=== PATIENT | female | born 1990 | race Caucasian/White ===

== ENCOUNTER 2016-11-12 20:03 | Emergency (ER) | payer MEDICAID, OTHER ==
[~2016-11-12 20:03] MED LIST: ACET50TA PO; ANUS2.5C2 TOP; COLA50CA3 PO; FLINSTONE VITAMINS PO; IBUP600T26 PO; MOM30SS PO
[2016-11-12] MEDS ORDERED: NAPROXEN 250 MG TAB As Ordered ONE (21:24)
--- NOTE | 2016-11-12 21:30 | EDDOCDS ---
Physician Documentation [facility] Name: Nadia Ibarra Age: 26 yrs Sex: Female : 1990 Arrival Date: 11/12/2016 Time: 20:03 Bed PR Private MD: Baldemar Hargrove Disposition: 11/12/16 21:21 Discharged to Home/Self Care. Impression: Sprain of medial collateral ligament of right knee. - Condition is Stable. - Discharge Instructions: Elastic Bandage and RICE, Knee Sprain. - Prescriptions for Naprosyn 500 mg Oral Tablet - take 1 tablet by ORAL route 2 times per day take with food; 30 tablet. - Medication Reconciliation, Work Release Form - 3 day, Local Pharmacy Hours form. - Follow up: Orthopaedics, [facility]; When: Call to arrange an appointment; Reason: Recheck today's complaints. - Problem is new. - Symptoms are unchanged. Historical: - Allergies: Phenergan ("crazy"); - Home Meds: 1. Wellbutrin XL 300 mg oral Tb24 1 tab once daily (Last dose: 11/12/2016 08:00) 2. Topamax 50 mg Oral tab 1 tab 2 times per day (Last dose: 11/12/2016 08:00) 3. Revia 50 mg oral tab 1 tab once daily (Last dose: 11/12/2016 08:00) 4. hydroxyzine HCl 50 mg Oral tab three times a day (Last dose: 11/11/2016) 5. gabapentin 300 mg Oral cap 1 cap 3 times per day (Last dose: 11/12/2016 15:00) 6. BuSpar Oral 10 mg three times a day (Last dose: 11/12/2016 15:00) 7. naproxen 250 mg Oral tab 1 tab as needed (Last dose: 11/12/2016 15:00) - PMHx: ADHD; alcohol abuse; Anxiety; Borderline Personality Disorder; Depression; Migraines; - PSHx: Tubal ligation; - Social history: Smoking status: Patient uses tobacco products, current every day smoker. No barriers to communication noted, The patient speaks fluent Sierra Leonean, Speaks appropriately for age. - Family history: Not pertinent. - : The pt / caregiver states he / she is not on anticoagulants. Home medication list is obtained from the patient. - Exposure Risk Screening:: None identified. LOCATION ANALYST: 11/12 20:13 LMP 11/06/2016 f Vital Signs: 20:05 BP 128 / 76; Pulse 94; Resp 18; Temp 96.9; Pulse Ox 99% ; Weight 74.84 kg / 164.99 lbs; elp Height 5 ft. 6 in. (167.64 cm); Pain 6/10; 21:23 BP 125 / 79; Pulse 84; Resp 20; Temp 96.8(O); Pulse Ox 98% on R/A; Pain 6/10; jmv 20:05 Body Mass Index 26.63 (74.84 kg, 167.64 cm) elp MDM: 20:27 Knee, Complete Ordered. EDMS 21:18 [facility] Payment Agreement was scanned into [employer] and attached to record. gjb 21:18 Financial registration complete. gjb 21:20 Naproxen 500 mg PO once; administer with food or milk ordered. ar2 21:20 Sergo Wrap ordered. ar2 Administered Medications: 21:29 Drug: Naproxen 500 mg [naproxen 250 mg tablet (2 tabs)] Route: PO; cz Signatures: Dispatcher [employer] EDMS Blake Carnes RN RN cz Silverio Agarwal PA-C PA-C ar2 Gladys Gamboa RN RN dsf Azra Luciano The chart was reviewed and I authenticate all verbal orders and agree with the evaluation and treatment provided.Attachments: 21:18 [facility] Payment Agreement gjb MTDD
--- NOTE | 2016-11-12 21:30 | EDDOCDS ---
Nurse's Notes [facility] Name: Nadia Ibarra Age: 26 yrs Sex: Female : 1990 Arrival Date: 11/12/2016 Time: 20:03 Bed PR Private MD: Baldemar Hargrove Diagnosis: Sprain of medial collateral ligament of right knee Presentation: 11/12 20:10 Presenting complaint: Patient states: right knee pain. pt states she injured it 3 weeks dsf ago. Adult Sepsis Screening: The patient does not have new or worsening altered mentation. Patient's respiratory rate is less than 22. Systolic blood pressure is greater than 100. Patient has a qSOFA score of 0- Negative Sepsis Screen. Suicide/Homicide risk assessment- the patient denies having any suicidal and/or homicidal ideations and does not present with any other emotional, behavioral or mental health complaints. Status: Patient is not a disabilities services officer or dependent. Transition of care: patient was not received from another setting of care. 20:10 Acuity: CARROLL Level 4 dsf 20:10 Method Of Arrival: Walkin/Carried/Asstd dsf Triage Assessment: 20:13 General: Appears in no apparent distress, Behavior is appropriate for age, cooperative. dsf Pain: Location: posterior aspect of right and sides of right knee Pain currently is 6 out of 10 on a pain scale. Quality of pain is described as burning. HIV screening NA for this visit Offered previously. 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 Wellbutrin XL 300 mg oral Tb24 1 tab once daily (Last dose: 11/12/2016 08:00) 2. Topamax 50 mg Oral tab 1 tab 2 times per day (Last dose: 11/12/2016 08:00) 3. Revia 50 mg oral tab 1 tab once daily (Last dose: 11/12/2016 08:00) 4. hydroxyzine HCl 50 mg Oral tab three times a day (Last dose: 11/11/2016) 5. gabapentin 300 mg Oral cap 1 cap 3 times per day (Last dose: 11/12/2016 15:00) 6. BuSpar Oral 10 mg three times a day (Last dose: 11/12/2016 15:00) 7. naproxen 250 mg Oral tab 1 tab as needed (Last dose: 11/12/2016 15:00) - PMHx: ADHD; alcohol abuse; Anxiety; Borderline Personality Disorder; Depression; Migraines; - PSHx: Tubal ligation; - Social history: Smoking status: Patient uses tobacco products, current every day smoker. No barriers to communication noted, The patient speaks fluent Armenian, Speaks appropriately for age. - Family history: Not pertinent. - : The pt / caregiver states he / she is not on anticoagulants. Home medication list is obtained from the patient. - Exposure Risk Screening:: None identified. Screenin:05 Infection Control. elp 20:24 Screening information is obtained from the patient. Fall risk: No risks identified. cz Assistance ADL's: requires no assistance with activities of daily living. Abuse/DV Screen: The patient / caregiver reports he/she is: not in a situation that causes fear, pain or injury. Nutritional screening: No deficits noted. Advance Directives: Currently, there is no health care proxy. There is no active DNR order. There is no living will. There is no Power of Cardiopulmonary Supervisor. Advance directive information has not previously been placed in an [facility] medical record. home support is adequate. Assessment: 20:24 General: alert female with right knee pain no deformity pt walking with straight leg cz motion. Vital Signs: 20:05 BP 128 / 76; Pulse 94; Resp 18; Temp 96.9; Pulse Ox 99% ; Weight 74.84 kg; Height 5 ft. elp 6 in. (167.64 cm); Pain 6/10; 21:23 BP 125 / 79; Pulse 84; Resp 20; Temp 96.8(O); Pulse Ox 98% on R/A; Pain 6/10; jmv 20:05 Body Mass Index 26.63 (74.84 kg, 167.64 cm) [facility] Vitals: 20:05 Log In Time: November 12, 2016 at 20:03. [facility] ED Course: 20:04 Patient visited by Janice Riggins PCA. elp 20:04 Baldemar Hargrove DO is Private Physician. elp 20:04 Patient moved to Waiting elp 20:05 Patient moved to Pre RCE elp 20:11 Triage Initiated dsf 20:21 Patient moved to Triage 3 cz 20:23 [facility] ar2 20:23 Rahul Hand DO is Attending Physician. ar2 20:23 Patient visited by Silverio Agarwal PA-C. ar2 20:24 The patient / caregiver is instructed regarding the plan of care and ED course. cz 20:24 No IV's were initiated during this patient's visit. No procedures done that require cz assistance. 20:32 Patient moved to TR2 cz 21:14 Patient moved to PR1 / 25 cz 21:18 [facility] Payment Agreement was scanned into [employer] and attached to record. gjb [facility] ar2 21:24 Patient visited by Cooper Ronquillo PCA. lilo Administered Medications: 21:29 Drug: Naproxen 500 mg [naproxen 250 mg tablet (2 tabs)] Route: PO; cz Order Results: There are currently no results for this order. Outcome: 21:21 Discharge ordered by Provider. ar2 21:29 Discharge Assessment: Patient awake, alert and oriented x 3. No cognitive and/or cz functional deficits noted. Patient verbalized understanding of disposition instructions. patient administered narcotics - no. The following High Risk Discharge criteria are identified: None. Discharged to home ambulatory, with family. Condition: stable. Discharge instructions given to patient, Instructed on discharge instructions, follow up and referral plans. medication usage, Demonstrated understanding of instructions, medications, Pt was receptive of discharge instructions/ teaching. No special radiology studies were completed. Property :Personal belongings accompany Pt. 21:30 Patient left the ED. cz Signatures: Blake Carnes RN RN cz Silverio Agarwal PA-C PA-C ar2 Gladys GamboaRN RN dsf Janice Riggins, CAFETERIA WORKER CAFETERIA WORKER Azra Govea [facility] Cooper Ronquillo PCA CAFETERIA WORKER lilo ALONDRA
--- NOTE | 2016-11-13 09:57 | REP ---
Right knee series: Five views. History: Trauma, posteromedial pain. Findings: Five views right knee demonstrate normal bones, joints, and soft tissues. No evidence of fracture or subluxation seen. Impression: Negative right knee series. Signed by Agusto Carroll MD 11/13/2016 10:23 A
--- NOTE | 2016-11-15 11:48 | EDDOCDS ---
Physician Documentation [facility] Name: Nadia Ibarra Age: 26 yrs Sex: Female : 1990 Arrival Date: 11/12/2016 Time: 20:03 Bed PR Private MD: Baldemar Hargrove Disposition: 11/12/16 21:21 Discharged to Home/Self Care. Impression: Sprain of medial collateral ligament of right knee. - Condition is Stable. - Discharge Instructions: Elastic Bandage and RICE, Knee Sprain. - Prescriptions for Naprosyn 500 mg Oral Tablet - take 1 tablet by ORAL route 2 times per day take with food; 30 tablet. - Medication Reconciliation, Work Release Form - 3 day, Local Pharmacy Hours form. - Follow up: Orthopaedics, [facility]; When: Call to arrange an appointment; Reason: Recheck today's complaints. - Problem is new. - Symptoms are unchanged. Historical: - Allergies: Phenergan ("crazy"); - Home Meds: 1. Wellbutrin XL 300 mg oral Tb24 1 tab once daily (Last dose: 11/12/2016 08:00) 2. Topamax 50 mg Oral tab 1 tab 2 times per day (Last dose: 11/12/2016 08:00) 3. Revia 50 mg oral tab 1 tab once daily (Last dose: 11/12/2016 08:00) 4. hydroxyzine HCl 50 mg Oral tab three times a day (Last dose: 11/11/2016) 5. gabapentin 300 mg Oral cap 1 cap 3 times per day (Last dose: 11/12/2016 15:00) 6. BuSpar Oral 10 mg three times a day (Last dose: 11/12/2016 15:00) 7. naproxen 250 mg Oral tab 1 tab as needed (Last dose: 11/12/2016 15:00) - PMHx: ADHD; alcohol abuse; Anxiety; Borderline Personality Disorder; Depression; Migraines; - PSHx: Tubal ligation; - Social history: Smoking status: Patient uses tobacco products, current every day smoker. No barriers to communication noted, The patient speaks fluent Beninese, Speaks appropriately for age. - Family history: Not pertinent. - : The pt / caregiver states he / she is not on anticoagulants. Home medication list is obtained from the patient. - Exposure Risk Screening:: None identified. 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 6 in. (167.64 cm); Pain 6/10; 21:23 BP 125 / 79; Pulse 84; Resp 20; Temp 96.8(O); Pulse Ox 98% on R/A; Pain 6/10; jmv 20:05 Body Mass Index 26.63 (74.84 kg, 167.64 cm) elp MDM: 20:27 Knee, Complete Ordered. EDSC :18 [facility] Payment Agreement was scanned into [employer] and attached to record. [facility]18 Financial registration complete. [facility] 21:20 Naproxen 500 mg PO once; administer with food or milk ordered. ar2 21:20 Sergo Wrap ordered. ar2 11/13 08:44 T-Sheet-- Draft Copy was scanned into [employer] and attached to record. se Administered Medications: 11/12 21:29 Drug: Naproxen 500 mg [naproxen 250 mg tablet (2 tabs)] Route: PO; cz Signatures: Dispatcher [employer] EDSC Blake Carnes RN RN cz Robertshaw, Aaron, PA-C PA-C ar2 Gladys Gamboa RN RN dsf Beck, Gabriela gjb Hoffert, Sarah [facility] The chart was reviewed and I authenticate all verbal orders and agree with the evaluation and treatment provided.Attachments: :18 [facility] Payment Agreement [facility] 11/13 08:44 T-Sheet-- Draft Copy [facility] Chart Complete MTDD
--- NOTE | 2016-11-15 11:48 | EDDOCDS ---
Physician Documentation [facility] Name: Nadia Ibarra Age: 26 yrs Sex: Female : 1990 Arrival Date: 11/12/2016 Time: 20:03 Bed PR Private MD: Baldemar Hargrove Disposition: 11/12/16 21:21 Discharged to Home/Self Care. Impression: Sprain of medial collateral ligament of right knee. - Condition is Stable. - Discharge Instructions: Elastic Bandage and RICE, Knee Sprain. - Prescriptions for Naprosyn 500 mg Oral Tablet - take 1 tablet by ORAL route 2 times per day take with food; 30 tablet. - Medication Reconciliation, Work Release Form - 3 day, Local Pharmacy Hours form. - Follow up: Orthopaedics, [facility]; When: Call to arrange an appointment; Reason: Recheck today's complaints. - Problem is new. - Symptoms are unchanged. Historical: - Allergies: Phenergan ("crazy"); - Home Meds: 1. Wellbutrin XL 300 mg oral Tb24 1 tab once daily (Last dose: 11/12/2016 08:00) 2. Topamax 50 mg Oral tab 1 tab 2 times per day (Last dose: 11/12/2016 08:00) 3. Revia 50 mg oral tab 1 tab once daily (Last dose: 11/12/2016 08:00) 4. hydroxyzine HCl 50 mg Oral tab three times a day (Last dose: 11/11/2016) 5. gabapentin 300 mg Oral cap 1 cap 3 times per day (Last dose: 11/12/2016 15:00) 6. BuSpar Oral 10 mg three times a day (Last dose: 11/12/2016 15:00) 7. naproxen 250 mg Oral tab 1 tab as needed (Last dose: 11/12/2016 15:00) - PMHx: ADHD; alcohol abuse; Anxiety; Borderline Personality Disorder; Depression; Migraines; - PSHx: Tubal ligation; - Social history: Smoking status: Patient uses tobacco products, current every day smoker. No barriers to communication noted, The patient speaks fluent Guatemalan, Speaks appropriately for age. - Family history: Not pertinent. - : The pt / caregiver states he / she is not on anticoagulants. Home medication list is obtained from the patient. - Exposure Risk Screening:: None identified. 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 6 in. (167.64 cm); Pain 6/10; 21:23 BP 125 / 79; Pulse 84; Resp 20; Temp 96.8(O); Pulse Ox 98% on R/A; Pain 6/10; jmv 20:05 Body Mass Index 26.63 (74.84 kg, 167.64 cm) elp MDM: 20:27 Knee, Complete Ordered. EDOH :18 [facility] Payment Agreement was scanned into [employer] and attached to record. [facility] :18 Financial registration complete. [facility] 21:20 Naproxen 500 mg PO once; administer with food or milk ordered. ar2 21:20 Sergo Wrap ordered. ar2 11/13 08:44 T-Sheet-- Draft Copy was scanned into [employer] and attached to record. se Administered Medications: 11/12 21:29 Drug: Naproxen 500 mg [naproxen 250 mg tablet (2 tabs)] Route: PO; cz Signatures: Dispatcher [employer] EDOH Blake Carnes RN RN cz Robertshaw, Aaron, PA-C PA-C ar2 Gladys Gamboa RN RN dsf Beck, Gabriela gjb Hoffert, Sarah [facility] The chart was reviewed and I authenticate all verbal orders and agree with the evaluation and treatment provided.Attachments: :18 [facility] Payment Agreement [facility] 11/13 08:44 T-Sheet-- Draft Copy [facility] Chart Complete MTDD
--- NOTE | 2016-11-15 11:48 | EDDOCDS ---
Nurse's Notes [facility] Name: Nadia Ibarra Age: 26 yrs Sex: Female : 1990 Arrival Date: 11/12/2016 Time: 20:03 Bed PR Private MD: Baldemar Hargrove Diagnosis: Sprain of medial collateral ligament of right knee Presentation: 11/12 20:10 Presenting complaint: Patient states: right knee pain. pt states she injured it 3 weeks dsf ago. Adult Sepsis Screening: The patient does not have new or worsening altered mentation. Patient's respiratory rate is less than 22. Systolic blood pressure is greater than 100. Patient has a qSOFA score of 0- Negative Sepsis Screen. Suicide/Homicide risk assessment- the patient denies having any suicidal and/or homicidal ideations and does not present with any other emotional, behavioral or mental health complaints. Status: Patient is not a instructor ground services or dependent. Transition of care: patient was not received from another setting of care. 20:10 Acuity: CARRLOL Level 4 dsf 20:10 Method Of Arrival: Walkin/Carried/Asstd dsf Triage Assessment: 20:13 General: Appears in no apparent distress, Behavior is appropriate for age, cooperative. dsf Pain: Location: posterior aspect of right and sides of right knee Pain currently is 6 out of 10 on a pain scale. Quality of pain is described as burning. HIV screening NA for this visit Offered previously. 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 Wellbutrin XL 300 mg oral Tb24 1 tab once daily (Last dose: 11/12/2016 08:00) 2. Topamax 50 mg Oral tab 1 tab 2 times per day (Last dose: 11/12/2016 08:00) 3. Revia 50 mg oral tab 1 tab once daily (Last dose: 11/12/2016 08:00) 4. hydroxyzine HCl 50 mg Oral tab three times a day (Last dose: 11/11/2016) 5. gabapentin 300 mg Oral cap 1 cap 3 times per day (Last dose: 11/12/2016 15:00) 6. BuSpar Oral 10 mg three times a day (Last dose: 11/12/2016 15:00) 7. naproxen 250 mg Oral tab 1 tab as needed (Last dose: 11/12/2016 15:00) - PMHx: ADHD; alcohol abuse; Anxiety; Borderline Personality Disorder; Depression; Migraines; - PSHx: Tubal ligation; - Social history: Smoking status: Patient uses tobacco products, current every day smoker. No barriers to communication noted, The patient speaks fluent Mongolian, Speaks appropriately for age. - Family history: Not pertinent. - : The pt / caregiver states he / she is not on anticoagulants. Home medication list is obtained from the patient. - Exposure Risk Screening:: None identified. Screenin:05 Infection Control. elp 20:24 Screening information is obtained from the patient. Fall risk: No risks identified. cz Assistance ADL's: requires no assistance with activities of daily living. Abuse/DV Screen: The patient / caregiver reports he/she is: not in a situation that causes fear, pain or injury. Nutritional screening: No deficits noted. Advance Directives: Currently, there is no health care proxy. There is no active DNR order. There is no living will. There is no Power of Skiver Machine. Advance directive information has not previously been placed in an [facility] medical record. home support is adequate. Assessment: 20:24 General: alert female with right knee pain no deformity pt walking with straight leg cz motion. Vital Signs: 20:05 BP 128 / 76; Pulse 94; Resp 18; Temp 96.9; Pulse Ox 99% ; Weight 74.84 kg; Height 5 ft. elp 6 in. (167.64 cm); Pain 6/10; 21:23 BP 125 / 79; Pulse 84; Resp 20; Temp 96.8(O); Pulse Ox 98% on R/A; Pain 6/10; jmv 20:05 Body Mass Index 26.63 (74.84 kg, 167.64 cm) [facility] Vitals: 20:05 Log In Time: November 12, 2016 at 20:03. [facility] ED Course: 20:04 Patient visited by Janice Riggins PCA. elp 20:04 Baldemar Hargrove DO is Private Physician. elp 20:04 Patient moved to Waiting elp 20:05 Patient moved to Pre RCE elp 20:11 Triage Initiated dsf 20:21 Patient moved to Triage 3 cz 20:23 Silver[facility]wal [facility]C [facility] ar2 20:23 Rahul Hand DO is Attending Physician. ar2 20:23 Patient visited by Silverio Agarwal PA-C. ar2 20:24 The patient / caregiver is instructed regarding the plan of care and ED course. cz 20:24 No IV's were initiated during this patient's visit. No procedures done that require cz assistance. 20:32 Patient moved to TR2 cz 21:14 Patient moved to PR1 / 25 cz 21:18 [facility] Payment Agreement was scanned into [employer] and attached to record. gjb 21:21 [facility]. ar2 21:24 Patient visited by Cooper Ronquillo PCA. lilo 11/13 08:44 T-Sheet-- Draft Copy was scanned into [employer] and attached to record. [facility] 10:12 Knee, Complete Returned. EDMS Administered Medications: 11/12 21:29 Drug: Naproxen 500 mg [naproxen 250 mg tablet (2 tabs)] Route: PO; cz Order Results: Radiology Order: Knee, Complete Test: Knee, Complete REASON FOR EXAMINATION: posterior, medial pain. trauma; Right knee series: Five views.; ; History: Trauma, posteromedial pain.; ; Findings: Five views right knee demonstrate normal bones, joints, and soft; tissues. No evidence of fracture or subluxation seen.; ; Impression:; ; Negative right knee series.; ; ; Signed by; Agusto Carroll MD 11/13/2016 10:23 A; Outcome: 21:21 Discharge ordered by Provider. ar2 21:29 Discharge Assessment: Patient awake, alert and oriented x 3. No cognitive and/or cz functional deficits noted. Patient verbalized understanding of disposition instructions. patient administered narcotics - no. The following High Risk Discharge criteria are identified: None. Discharged to home ambulatory, with family. Condition: stable. Discharge instructions given to patient, Instructed on discharge instructions, follow up and referral plans. medication usage, Demonstrated understanding of instructions, medications, Pt was receptive of discharge instructions/ teaching. No special radiology studies were completed. Property :Personal belongings accompany Pt. 21:30 Patient left the ED. cz Signatures: Dispatcher [facility] EDMS Blake Carnes RN RN cz Silverio Agarwal PA-C PA-C ar2 Gladys Gamboa,RN RN dsf Vaishnavi, Janice, JUNIOR BRAND MANAGER JUNIOR BRAND MANAGER Azra Govea, Cooper Flores, JUNIOR BRAND MANAGER JUNIOR BRAND MANAGER jmv Chart Complete MTDD
== END 2016-11-12 21:30 | disposition home or self-care (01) ==
LOC: M ED 20:03
DX: S83.411A Sprain of medial collateral ligament of right knee, initial encounter (principal); W10.9XXA Fall (on) (from) unspecified stairs and steps, initial encounter; Y92.018 Other place in single-family (private) house as the place of occurrence of the external cause; Y93.89 Activity, other specified; Y99.8 Other external cause status; G43.909 Migraine, unspecified, not intractable, without status migrainosus; F32.9 Major depressive disorder, single episode, unspecified; F41.9 Anxiety disorder, unspecified; F90.9 Attention-deficit hyperactivity disorder, unspecified type; F60.9 Personality disorder, unspecified; F10.10 Alcohol abuse, uncomplicated; Z79.899 Other long term (current) drug therapy; Z88.8 Allergy status to other drugs, medicaments and biological substances; F17.210 Nicotine dependence, cigarettes, uncomplicated

== ENCOUNTER 2016-12-06 20:09 | Emergency (ER) | payer OTHER ==
[~2016-12-06 20:09] MED LIST changes: -EPINEPHrine 1MG/ML INJ 30ML MD-VIAL XX ONE; -GLYCOPYRROLATE INJ 0.2 MG/ML 2 ML VIAL As Ordered ONE; -LIDOCAINE W/EPINEPHRINE 1% 20ML VIAL As Ordered ONE; -LIDOCAINE W/EPINEPHRINE 1% 20ML VIAL XX ONE; -LR 1,000 ML IV SCH; -METHYLENE BLUE 1% 10 ML VIAL (Q9968) As Ordered ONE; -MIDAZOLAM INJ 2 MG/2 ML VIAL (J2250) As Ordered ONE; -NEOSTIGMINE 1MG/ML 5 ML SYRINGE (J2710) As Ordered ONE; -ONDANSETRON 4MG/2ML VIAL (J2405) As Ordered ONE; -ONDANSETRON 4MG/2ML VIAL (J2405) IV PRN; -PERCOCET 5MG/325MG TAB As Ordered ONE; -ROCURONIUM BROMIDE 50 MG/5 ML VIAL As Ordered ONE; -SODIUM CHLORIDE 0.9% NASAL GEL 15MG (AYR) As Ordered ONE; -dexameTHASONE 4 MG/ML 1ML VIAL (J1100) As Ordered ONE; -dexameTHASONE 4 MG/ML 1ML VIAL (J1100) IV ONE; -fentaNYL 100 MCG/2 ML INJECTION (J3010) As Ordered ONE
[2016-12-06] MEDS ORDERED: ONDANSETRON 4MG/2ML VIAL (J2405) As Ordered ONE (20:58)
[2016-12-06 21:06] LABS: BASO # 0.1 K/mm3 (0.0-0.2); BASO % 1.6 % (0.0-1.0); EOS # 0.1 K/mm3 (0.0-0.50); EOS % 0.9 % (0.0-3.0); LARGE UNSTAINED CELL % 0.5 % (0.0-4.0); LYMPH # 0.7 K/mm3 (1.5-6.5); MEAN CORPUSCULAR HEMOGLOBIN 30.4 pg (27.0-33.0); MEAN CORPUSCULAR HGB CONC 34.1 g/dl (32.0-36.5); MEAN CORPUSCULAR VOLUME 89.2 fl (80.0-96.0); MONO # 0.1 K/mm3 (0.0-0.8); NEUTROPHILS # 6.2 K/mm3 (1.8-7.7); NEUTROPHILS % 86.1 % (36.0-66.0); PLATELET COUNT, AUTOMATED 195 k/mm3 (150-450); RED CELL DISTRIBUTION WIDTH 13.1 % (11.5-14.5); WHITE BLOOD COUNT 7.2 K/mm3 (4.0-10.0)
--- NOTE | 2016-12-06 22:35 | EDDOCDS ---
Physician Documentation [facility] Name: Nadia Ibarra Age: 26 yrs Sex: Female : 1990 Arrival Date: 12/06/2016 Time: 20:09 Bed 10 Private MD: Bernabe Alicia Disposition: 12/06/16 22:22 Discharged to Home/Self Care. Impression: Epistaxis. - Condition is Stable. - Discharge Instructions: Nosebleed, [id number]. - Prescriptions for Zofran 4 mg Oral Tablet - take 1 tablet by ORAL route every 8-10 hours As needed; 5 tablet. - Medication Reconciliation, Local Pharmacy Hours form. - Follow up: Colt Toussaint; When: Call to arrange an appointment; Reason: Continuance of care. - Problem is new. - Symptoms have improved. Historical: - Allergies: Phenergan ("crazy"); - Home Meds: 1. gabapentin 300 mg Oral cap 1 cap 3 times per day 2. BuSpar Oral 10 mg three times a day 3. Topamax 50 mg Oral tab 1 tab 2 times per day 4. Celexa 30 mg Oral once daily - PMHx: ADHD; Anxiety; Borderline Personality Disorder; Depression; Migraines; alcohol abuse; - PSHx: Tubal ligation; nasal surgery; - Social history: Smoking status: Patient uses tobacco products, current every day smoker. No barriers to communication noted, The patient speaks fluent Kiswahili, Speaks appropriately for age. - Family history: Not pertinent. - : The pt / caregiver states he / she is not on anticoagulants. Home medication list is obtained from the patient. - Exposure Risk Screening:: None identified. 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 6 in. (167.64 cm) (R); Pain 6/10; 22:32 BP 118 / 62; Pulse 80; Resp 16; Temp 99.1(TE); Pulse Ox 97% ; mlc 20:11 Body Mass Index 28.41 (79.83 kg, 167.64 cm) gr2 20:11 TEMP NEEDS TO BE TAKEN INSIDE gr2 MDM: 20:45 IV Saline Lock ordered. fg 20:45 Ondansetron 4 mg IVP once ordered. fg 20:45 NS 0.9% 500 ml IV at bolus once ordered. fg 20:46 CBC with Diff Ordered. EDMS 21:32 Financial registration complete. gjb 21:33 [facility] Payment Agreement was scanned into Miroi and attached to record. gjb Administered Medications: 21:03 Drug: Ondansetron 4 mg [ondansetron HCl 2 mg/mL intravenous solution (2 mL)] Route: mlc IVP; Site: right antecubital; 21:52 Follow up: Response: Nausea is decreased mlc 21:04 Drug: NS 0.9% 500 ml [sodium chloride 0.9 % intravenous solution] Route: IV; Rate: mlc bolus; Site: right antecubital; 21:52 Follow up: IV Status: Completed infusion mlc Signatures: Dispatcher MedHost EDMS Gladys Gamboa RN RN dsf Booth, Mandy, RN RN mlc Gill, Frances, MD MD fg Beck, Gabriela gjb The chart was reviewed and I authenticate all verbal orders and agree with the evaluation and treatment provided.Attachments: 21:33 [facility] Payment Agreement gjb MTDMeghana
--- NOTE | 2016-12-06 22:35 | EDDOCDS ---
Nurse's Notes [facility] Name: Nadia Ibarra Age: 26 yrs Sex: Female : 1990 Arrival Date: 12/06/2016 Time: 20:09 Bed 10 Private MD: Bernabe Alicia Diagnosis: Epistaxis Presentation: 12/06 20:16 Presenting complaint: Patient states: nasal surgery today was discharged at 1730. Pt dsf said she started having nasal bleeding. Pt states Dr. Uribe is waiting to see pt in the ER. Pt states she feels dizzy. Adult Sepsis Screening: The patient does not have new or worsening altered mentation. Patient's respiratory rate is less than 22. Systolic blood pressure is greater than 100. Patient has a qSOFA score of 0- Negative Sepsis Screen. Suicide/Homicide risk assessment- the patient denies having any suicidal and/or homicidal ideations and does not present with any other emotional, behavioral or mental health complaints. Status: Patient is not a track service person or dependent. Transition of care: patient was not received from another setting of care. 20:16 Acuity: CARROLL Level 3 dsf 20:16 Method Of Arrival: Wheelchair dsf Triage Assessment: 20:21 General: Appears in no apparent distress, Behavior is appropriate for age, cooperative. dsf Pain: Location: nose Pain currently is 10 out of 10 on a pain scale. Quality of pain is described as aching, sharp. HIV screening NA for this visit Offered previously. Neurological: Level of Consciousness is awake, Reports dizziness, light headed . Derm: Skin is pale. 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 gabapentin 300 mg Oral cap 1 cap 3 times per day 2. BuSpar Oral 10 mg three times a day 3. Topamax 50 mg Oral tab 1 tab 2 times per day 4. Celexa 30 mg Oral once daily - PMHx: ADHD; Anxiety; Borderline Personality Disorder; Depression; Migraines; alcohol abuse; - PSHx: Tubal ligation; nasal surgery; - Social history: Smoking status: Patient uses tobacco products, current every day smoker. No barriers to communication noted, The patient speaks fluent Iraqi, Speaks appropriately for age. - Family history: Not pertinent. - : The pt / caregiver states he / she is not on anticoagulants. Home medication list is obtained from the patient. - Exposure Risk Screening:: None identified. Screenin:04 Screening information is obtained from the patient. Fall risk: No risks identified. [facility] [place] Assistance ADL's: requires no assistance with activities of daily living. Abuse/DV Screen: The patient / caregiver reports he/she is: not in a situation that causes fear, pain or injury. Nutritional screening: No deficits noted. Advance Directives: Currently, there is no health care proxy. home support is adequate. Assessment: 20:33 General: Appears uncomfortable, Behavior is cooperative. General: dressing to both [facility] nares. . Pain: Location: nose Pain currently is 10 out of 10 on a pain scale. Neurological: Level of Consciousness is awake, alert, Oriented to person, place, time. Respiratory: Airway is patent Respiratory effort is even, unlabored, Respiratory pattern is regular. Derm: Skin is pale. 21:04 Reassessment: pt medicated per order. [facility] [place] 21:50 Reassessment: Patient appears in no apparent distress at this time. nausea decreased. [facility] pt upset, crying. pt states that her nose "needs to be cleaned". Pt asking if Dr. Uribe is going to come and clean out her nose. Pt advised that Dr. Uribe will be contacted shortly by Dr. Calderon. reassurance given. . 22:15 Reassessment: Patient appears in no apparent distress at this time. Dr. Calderon in to [facility] speak with patient. pt resting comfortably in bed. . 22:32 General: Appears in no apparent distress, comfortable, Behavior is cooperative. [facility] Neurological: Level of Consciousness is awake, alert, Oriented to person, place, time. Respiratory: Airway is patent Respiratory effort is even, unlabored, Respiratory pattern is regular. Derm: Skin is normal. Vital Signs: 20:11 BP 147 / 78; Pulse 87; Resp 18 S; Pulse Ox 98% on R/A; Weight 79.83 kg (R); Height 5 gr2 ft. 6 in. (167.64 cm) (R); Pain 6/10; 22:32 BP 118 / 62; Pulse 80; Resp 16; Temp 99.1(TE); Pulse Ox 97% ; mlc 20:11 Body Mass Index 28.41 (79.83 kg, 167.64 cm) gr2 20:11 TEMP NEEDS TO BE TAKEN INSIDE gr2 Vitals: 20:11 Log In Time: December 06, 2016 at 20:11. gr2 ED Course: 20:10 Patient visited by Maria Alejandra Pelletier. gr2 20:10 Patient moved to Waiting gr2 20:11 Bernabe Alicia is Private Physician. gr2 20:12 Patient visited by Maria Alejandra Pelletier. gr2 20:12 Patient moved to Pre RCE gr2 20:19 Triage Initiated dsf 20:31 Meghna Domingo RN is Primary Nurse. hs1 20:31 Patient moved to 10 hs1 20:33 Jennifer Calderon MD is Attending Physician. fg 20:34 Patient visited by Jennifer Calderon MD. fg 20:34 Patient visited by Meghna Domingo RN. mlc 21:04 The patient / caregiver is instructed regarding the plan of care and ED course. mlc 21:04 Inserted saline lock: 20 gauge in right antecubital area and blood collected. The mlc patient tolerated the procedure well. 21:05 Patient visited by Meghna Domingo RN. [facility] [place] 21:33 [facility] Payment Agreement was scanned into Tix[employer] and attached to record. gjb 21:37 Patient name changed from Nadia\\S\\\\S\\Stacey\\S\\ to Nadia\\S\\ \\S\\Stacey. EDMS 21:52 Patient visited by Meghna Domingo RN. mlc 22:16 Patient visited by Meghna Domingo RN. mlc 22:22 Colt Toussaint is Referral Physician. fg 22:32 Discontinued IV lock intact, bleeding controlled, pressure dressing applied, No mlc redness/swelling at site. No procedures done that require assistance. Administered Medications: 21:03 Drug: Ondansetron 4 mg [ondansetron HCl 2 mg/mL intravenous solution (2 mL)] Route: mlc IVP; Site: right antecubital; 21:52 Follow up: Response: Nausea is decreased [facility] 21:04 Drug: NS 0.9% 500 ml [sodium chloride 0.9 % intravenous solution] Route: IV; Rate: mlc bolus; Site: right antecubital; 21:52 Follow up: IV Status: Completed infusion [facility] Order Results: Lab Order: CBC with Diff; SPEC'M 12/06/16 20:56 Test: WHITE BLOOD COUNT; Value: 7.2; Range: 4.0-10.0; Units: K/mm3; Status: F Test: RED BLOOD COUNT; Value: 4.36; Range: 4.00-5.40; Units: M/mm3; Status: F Test: HEMOGLOBIN; Value: 13.3; Range: 12.0-16.0; Units: g/dl; Status: F Test: HEMATOCRIT; Value: 38.8; Range: 36.0-47.0; Units: %; Status: F Test: MEAN CORPUSCULAR VOLUME; Value: 89.2; Range: 80.0-96.0; Units: fl; Status: F Test: MEAN CORPUSCULAR HEMOGLOBIN; Value: 30.4; Range: 27.0-33.0; Units: pg; Status: F Test: MEAN CORPUSCULAR HGB CONC; Value: 34.1; Range: 32.0-36.5; Units: g/dl; Status: F Test: RED CELL DISTRIBUTION WIDTH; Value: 13.1; Range: 11.5-14.5; Units: %; Status: F Test: PLATELET COUNT, AUTOMATED; Value: 195; Range: 150-450; Units: k/mm3; Status: F Test: NEUTROPHILS %; Value: 86.1; Range: 36.0-66.0; Abnormal: Above high normal; Units: %; Status: F Test: LYMPH %; Value: 9.0; Range: 24.0-44.0; Abnormal: Below low normal; Units: %; Status: F Test: MONO %; Value: 2.0; Range: 0.0-5.0; Units: %; Status: F Test: EOS %; Value: 0.9; Range: 0.0-3.0; Units: %; Status: F Test: BASO %; Value: 1.6; Range: 0.0-1.0; Abnormal: Above high normal; Units: %; Status: F Test: LARGE UNSTAINED CELL %; Value: 0.5; Range: 0.0-4.0; Units: %; Status: F Test: NEUTROPHILS #; Value: 6.2; Range: 1.8-7.7; Units: K/mm3; Status: F Test: LYMPH #; Value: 0.7; Range: 1.5-6.5; Abnormal: Below low normal; Units: K/mm3; Status: F Test: MONO #; Value: 0.1; Range: 0.0-0.8; Units: K/mm3; Status: F Test: EOS #; Value: 0.1; Range: 0.0-0.50; Units: K/mm3; Status: F Test: BASO #; Value: 0.1; Range: 0.0-0.2; Units: K/mm3; Status: F Test: LARGE UNSTAINED CELL #; Value: 0.0; Range: 0.0-0.4; Units: K/mm3; Status: F Outcome: 22:22 Discharge ordered by Provider. 22:32 Discharge Assessment: Patient awake, alert and oriented x 3. No cognitive and/or mlc functional deficits noted. Patient verbalized understanding of disposition instructions. patient administered narcotics - no. The following High Risk Discharge criteria are identified: None. Discharged to home ambulatory, with significant other. Condition: good Condition: stable. Discharge instructions given to patient, Instructed on discharge instructions, follow up and referral plans. medication usage, Demonstrated understanding of instructions, medications, Pt was receptive of discharge instructions/ teaching. Prescriptions given X 1. No special radiology studies were completed. Property sent home with patient. 22:34 Patient left the ED. mlc Signatures: Dispatcher MedHost EDMS Yary Younger, RN RN hs1 Gladys Gamboa RN RN viktoriyaf Maria Alejandra Pelletier gr2 Meghna Domingo RN RN Jennifer Arechiga MD MD fg Beck, Gabriela gjb MTDMeghana
--- NOTE | 2016-12-08 23:35 | EDDOCDS ---
Nurse's Notes [facility] Name: Nadia Ibarra Age: 26 yrs Sex: Female : 1990 Arrival Date: 12/06/2016 Time: 20:09 Bed 10 Private MD: Bernabe Alicia Diagnosis: Epistaxis Presentation: 12/06 20:16 Presenting complaint: Patient states: nasal surgery today was discharged at 1730. Pt dsf said she started having nasal bleeding. Pt states Dr. Uribe is waiting to see pt in the ER. Pt states she feels dizzy. Adult Sepsis Screening: The patient does not have new or worsening altered mentation. Patient's respiratory rate is less than 22. Systolic blood pressure is greater than 100. Patient has a qSOFA score of 0- Negative Sepsis Screen. Suicide/Homicide risk assessment- the patient denies having any suicidal and/or homicidal ideations and does not present with any other emotional, behavioral or mental health complaints. Status: Patient is not a servicer coin machines or dependent. Transition of care: patient was not received from another setting of care. 20:16 Acuity: CARROLL Level 3 dsf 20:16 Method Of Arrival: Wheelchair dsf Triage Assessment: 20:21 General: Appears in no apparent distress, Behavior is appropriate for age, cooperative. dsf Pain: Location: nose Pain currently is 10 out of 10 on a pain scale. Quality of pain is described as aching, sharp. HIV screening NA for this visit Offered previously. Neurological: Level of Consciousness is awake, Reports dizziness, light headed . Derm: Skin is pale. 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 gabapentin 300 mg Oral cap 1 cap 3 times per day 2. BuSpar Oral 10 mg three times a day 3. Topamax 50 mg Oral tab 1 tab 2 times per day 4. Celexa 30 mg Oral once daily - PMHx: ADHD; Anxiety; Borderline Personality Disorder; Depression; Migraines; alcohol abuse; - PSHx: Tubal ligation; nasal surgery; - Social history: Smoking status: Patient uses tobacco products, current every day smoker. No barriers to communication noted, The patient speaks fluent Japanese, Speaks appropriately for age. - Family history: Not pertinent. - : The pt / caregiver states he / she is not on anticoagulants. Home medication list is obtained from the patient. - Exposure Risk Screening:: None identified. Screenin:04 Screening information is obtained from the patient. Fall risk: No risks identified. [facility] Assistance ADL's: requires no assistance with activities of daily living. Abuse/DV Screen: The patient / caregiver reports he/she is: not in a situation that causes fear, pain or injury. Nutritional screening: No deficits noted. Advance Directives: Currently, there is no health care proxy. home support is adequate. Assessment: 20:33 General: Appears uncomfortable, Behavior is cooperative. General: dressing to both [facility] nares. . Pain: Location: nose Pain currently is 10 out of 10 on a pain scale. Neurological: Level of Consciousness is awake, alert, Oriented to person, place, time. Respiratory: Airway is patent Respiratory effort is even, unlabored, Respiratory pattern is regular. Derm: Skin is pale. 21:04 Reassessment: pt medicated per order. [facility] 21:50 Reassessment: Patient appears in no apparent distress at this time. nausea decreased. [facility] pt upset, crying. pt states that her nose "needs to be cleaned". Pt asking if Dr. Uribe is going to come and clean out her nose. Pt advised that Dr. Uribe will be contacted shortly by Dr. Calderon. reassurance given. . 22:15 Reassessment: Patient appears in no apparent distress at this time. Dr. Calderon in to [facility] speak with patient. pt resting comfortably in bed. . 22:32 General: Appears in no apparent distress, comfortable, Behavior is cooperative. [facility] Neurological: Level of Consciousness is awake, alert, Oriented to person, place, time. Respiratory: Airway is patent Respiratory effort is even, unlabored, Respiratory pattern is regular. Derm: Skin is normal. Vital Signs: 20:11 BP 147 / 78; Pulse 87; Resp 18 S; Pulse Ox 98% on R/A; Weight 79.83 kg (R); Height 5 gr2 ft. 6 in. (167.64 cm) (R); Pain 6/10; 22:32 BP 118 / 62; Pulse 80; Resp 16; Temp 99.1(TE); Pulse Ox 97% ; mlc 20:11 Body Mass Index 28.41 (79.83 kg, 167.64 cm) gr2 20:11 TEMP NEEDS TO BE TAKEN INSIDE gr2 Vitals: 20:11 Log In Time: December 06, 2016 at 20:11. gr2 ED Course: 20:10 Patient visited by Maria Alejandra Pelletier. gr2 20:10 Patient moved to Waiting gr2 20:11 Bernabe Alicia is Private Physician. gr2 20:12 Patient visited by Maria Alejandra Pelletier. gr2 20:12 Patient moved to Pre RCE gr2 20:19 Triage Initiated dsf 20:31 Meghna Domingo RN is Primary Nurse. hs1 20:31 Patient moved to 10 hs1 20:33 Jennifer Calderon MD is Attending Physician. fg 20:34 Patient visited by Jennifer Calderon MD. fg 20:34 Patient visited by Meghna Domingo RN. mlc 21:04 The patient / caregiver is instructed regarding the plan of care and ED course. mlc 21:04 Inserted saline lock: 20 gauge in right antecubital area and blood collected. The mlc patient tolerated the procedure well. 21:05 Patient visited by Meghna Domingo RN. [facility] 21:33 [facility] Payment Agreement was scanned into Digital Message Display and attached to record. gjb 21:37 Patient name changed from Nadia\\S\\\\S\\Stacey\\S\\ to Nadia\\S\\ \\S\\Stacey. EDMS 21:52 Patient visited by Meghna Domingo RN. mlc 22:16 Patient visited by Meghna Domingo RN. mlc 22:22 Colt Toussaint is Referral Physician. fg 22:32 Discontinued IV lock intact, bleeding controlled, pressure dressing applied, No mlc redness/swelling at site. No procedures done that require assistance. 12/07 10:52 T-Sheet-- Draft Copy was scanned into Digital Message Display and attached to record. gb Administered Medications: 12/06 21:03 Drug: Ondansetron 4 mg [ondansetron HCl 2 mg/mL intravenous solution (2 mL)] Route: mlc IVP; Site: right antecubital; 21:52 Follow up: Response: Nausea is decreased [facility] 21:04 Drug: NS 0.9% 500 ml [sodium chloride 0.9 % intravenous solution] Route: IV; Rate: mlc bolus; Site: right antecubital; 21:52 Follow up: IV Status: Completed infusion mlc Order Results: Lab Order: CBC with Diff; SPEC'M 12/06/16 20:56 Test: WHITE BLOOD COUNT; Value: 7.2; Range: 4.0-10.0; Units: K/mm3; Status: F Test: RED BLOOD COUNT; Value: 4.36; Range: 4.00-5.40; Units: M/mm3; Status: F Test: HEMOGLOBIN; Value: 13.3; Range: 12.0-16.0; Units: g/dl; Status: F Test: HEMATOCRIT; Value: 38.8; Range: 36.0-47.0; Units: %; Status: F Test: MEAN CORPUSCULAR VOLUME; Value: 89.2; Range: 80.0-96.0; Units: fl; Status: F Test: MEAN CORPUSCULAR HEMOGLOBIN; Value: 30.4; Range: 27.0-33.0; Units: pg; Status: F Test: MEAN CORPUSCULAR HGB CONC; Value: 34.1; Range: 32.0-36.5; Units: g/dl; Status: F Test: RED CELL DISTRIBUTION WIDTH; Value: 13.1; Range: 11.5-14.5; Units: %; Status: F Test: PLATELET COUNT, AUTOMATED; Value: 195; Range: 150-450; Units: k/mm3; Status: F Test: NEUTROPHILS %; Value: 86.1; Range: 36.0-66.0; Abnormal: Above high normal; Units: %; Status: F Test: LYMPH %; Value: 9.0; Range: 24.0-44.0; Abnormal: Below low normal; Units: %; Status: F Test: MONO %; Value: 2.0; Range: 0.0-5.0; Units: %; Status: F Test: EOS %; Value: 0.9; Range: 0.0-3.0; Units: %; Status: F Test: BASO %; Value: 1.6; Range: 0.0-1.0; Abnormal: Above high normal; Units: %; Status: F Test: LARGE UNSTAINED CELL %; Value: 0.5; Range: 0.0-4.0; Units: %; Status: F Test: NEUTROPHILS #; Value: 6.2; Range: 1.8-7.7; Units: K/mm3; Status: F Test: LYMPH #; Value: 0.7; Range: 1.5-6.5; Abnormal: Below low normal; Units: K/mm3; Status: F Test: MONO #; Value: 0.1; Range: 0.0-0.8; Units: K/mm3; Status: F Test: EOS #; Value: 0.1; Range: 0.0-0.50; Units: K/mm3; Status: F Test: BASO #; Value: 0.1; Range: 0.0-0.2; Units: K/mm3; Status: F Test: LARGE UNSTAINED CELL #; Value: 0.0; Range: 0.0-0.4; Units: K/mm3; Status: F Outcome: 22:22 Discharge ordered by Provider. fg 22:32 Discharge Assessment: Patient awake, alert and oriented x 3. No cognitive and/or mlc functional deficits noted. Patient verbalized understanding of disposition instructions. patient administered narcotics - no. The following High Risk Discharge criteria are identified: None. Discharged to home ambulatory, with significant other. Condition: good Condition: stable. Discharge instructions given to patient, Instructed on discharge instructions, follow up and referral plans. medication usage, Demonstrated understanding of instructions, medications, Pt was receptive of discharge instructions/ teaching. Prescriptions given X 1. No special radiology studies were completed. Property sent home with patient. 22:34 Patient left the ED. mlc Signatures: Dispatcher MedHost EDDE Yvonne Huerta, Yosvany Reg Yary Vanegas RN RN hs1 Gladys Gamboa RN RN dsf Raymond, Gainslee gr2 Meghna Domingo RN RN Jennifer Arechiga MD MD fg Beck, Gabriela gjb Chart Complete MTDD
--- NOTE | 2016-12-08 23:35 | EDDOCDS ---
Physician Documentation [facility] Name: Nadia Ibarra Age: 26 yrs Sex: Female : 1990 Arrival Date: 12/06/2016 Time: 20:09 Bed 10 Private MD: Bernabe Alicia Disposition: 12/06/16 22:22 Discharged to Home/Self Care. Impression: Epistaxis. - Condition is Stable. - Discharge Instructions: Nosebleed, [id number]. - Prescriptions for Zofran 4 mg Oral Tablet - take 1 tablet by ORAL route every 8-10 hours As needed; 5 tablet. - Medication Reconciliation, Local Pharmacy Hours form. - Follow up: Colt Toussaint; When: Call to arrange an appointment; Reason: Continuance of care. - Problem is new. - Symptoms have improved. Historical: - Allergies: Phenergan ("crazy"); - Home Meds: 1. gabapentin 300 mg Oral cap 1 cap 3 times per day 2. BuSpar Oral 10 mg three times a day 3. Topamax 50 mg Oral tab 1 tab 2 times per day 4. Celexa 30 mg Oral once daily - PMHx: ADHD; Anxiety; Borderline Personality Disorder; Depression; Migraines; alcohol abuse; - PSHx: Tubal ligation; nasal surgery; - Social history: Smoking status: Patient uses tobacco products, current every day smoker. No barriers to communication noted, The patient speaks fluent Turkish, Speaks appropriately for age. - Family history: Not pertinent. - : The pt / caregiver states he / she is not on anticoagulants. Home medication list is obtained from the patient. - Exposure Risk Screening:: None identified. FOLLOW UP REP: 12/06 20:21 LMP 12/06/2016 dsf Vital Signs: 20:11 BP 147 / 78; Pulse 87; Resp 18 S; Pulse Ox 98% on R/A; Weight 79.83 kg / 176 lbs (R); gr2 Height 5 ft. 6 in. (167.64 cm) (R); Pain 6/10; 22:32 BP 118 / 62; Pulse 80; Resp 16; Temp 99.1(TE); Pulse Ox 97% ; mlc 20:11 Body Mass Index 28.41 (79.83 kg, 167.64 cm) gr2 20:11 TEMP NEEDS TO BE TAKEN INSIDE gr2 MDM: 20:45 IV Saline Lock ordered. fg 20:45 Ondansetron 4 mg IVP once ordered. fg 20:45 NS 0.9% 500 ml IV at bolus once ordered. fg 20:46 CBC with Diff Ordered. EDMS 21:32 Financial registration complete. [facility] [place] :33 [facility] Payment Agreement was scanned into [employer] and attached to record. [facility] [place] 12/07 10:52 T-Sheet-- Draft Copy was scanned into [employer] and attached to record. gb Administered Medications: 12/06 21:03 Drug: Ondansetron 4 mg [ondansetron HCl 2 mg/mL intravenous solution (2 mL)] Route: mlc IVP; Site: right antecubital; 21:52 Follow up: Response: Nausea is decreased [facility] 21:04 Drug: NS 0.9% 500 ml [sodium chloride 0.9 % intravenous solution] Route: IV; Rate: mlc bolus; Site: right antecubital; 21:52 Follow up: IV Status: Completed infusion [facility] Signatures: Dispatcher MedHo EDRI Yvonne Huerta, Reg Reg Gladys HernandezRN RN Meghna Robledo RN RN Jennifer Arechiga MD MD fg Beck, Gabriela gjb The chart was reviewed and I authenticate all verbal orders and agree with the evaluation and treatment provided.Attachments: :33 [facility] Payment Agreement [facility] [place] 12/07 10:52 T-Sheet-- Draft Copy gb Chart Complete MTDD
--- NOTE | 2016-12-08 23:36 | EDDOCDS ---
Physician Documentation [facility] Name: Nadia Ibarra Age: 26 yrs Sex: Female : 1990 Arrival Date: 12/06/2016 Time: 20:09 Bed 10 Private MD: Bernabe Alicia Disposition: 12/06/16 22:22 Discharged to Home/Self Care. Impression: Epistaxis. - Condition is Stable. - Discharge Instructions: Nosebleed, [id number]. - Prescriptions for Zofran 4 mg Oral Tablet - take 1 tablet by ORAL route every 8-10 hours As needed; 5 tablet. - Medication Reconciliation, Local Pharmacy Hours form. - Follow up: Colt Toussaint; When: Call to arrange an appointment; Reason: Continuance of care. - Problem is new. - Symptoms have improved. Historical: - Allergies: Phenergan ("crazy"); - Home Meds: 1. gabapentin 300 mg Oral cap 1 cap 3 times per day 2. BuSpar Oral 10 mg three times a day 3. Topamax 50 mg Oral tab 1 tab 2 times per day 4. Celexa 30 mg Oral once daily - PMHx: ADHD; Anxiety; Borderline Personality Disorder; Depression; Migraines; alcohol abuse; - PSHx: Tubal ligation; nasal surgery; - Social history: Smoking status: Patient uses tobacco products, current every day smoker. No barriers to communication noted, The patient speaks fluent Sinhala, Speaks appropriately for age. - Family history: Not pertinent. - : The pt / caregiver states he / she is not on anticoagulants. Home medication list is obtained from the patient. - Exposure Risk Screening:: None identified. PATROL LADY: 12/06 20:21 LMP 12/06/2016 dsf Vital Signs: 20:11 BP 147 / 78; Pulse 87; Resp 18 S; Pulse Ox 98% on R/A; Weight 79.83 kg / 176 lbs (R); gr2 Height 5 ft. 6 in. (167.64 cm) (R); Pain 6/10; 22:32 BP 118 / 62; Pulse 80; Resp 16; Temp 99.1(TE); Pulse Ox 97% ; mlc 20:11 Body Mass Index 28.41 (79.83 kg, 167.64 cm) gr2 20:11 TEMP NEEDS TO BE TAKEN INSIDE gr2 MDM: 20:45 IV Saline Lock ordered. fg 20:45 Ondansetron 4 mg IVP once ordered. fg 20:45 NS 0.9% 500 ml IV at bolus once ordered. fg 20:46 CBC with Diff Ordered. EDMS 21:32 Financial registration complete. [facility] :33 [facility] Payment Agreement was scanned into [employer] and attached to record. [facility] 12/07 10:52 T-Sheet-- Draft Copy was scanned into [employer] and attached to record. gb Administered Medications: 12/06 21:03 Drug: Ondansetron 4 mg [ondansetron HCl 2 mg/mL intravenous solution (2 mL)] Route: mlc IVP; Site: right antecubital; 21:52 Follow up: Response: Nausea is decreased [facility] 21:04 Drug: NS 0.9% 500 ml [sodium chloride 0.9 % intravenous solution] Route: IV; Rate: mlc bolus; Site: right antecubital; 21:52 Follow up: IV Status: Completed infusion [facility] Signatures: Dispatcher MedHo EDCO Yvonne Huerta, Reg Reg Gladys HernandezRN RN Meghna Robledo RN RN Jennifer Arechiga MD MD fg Beck, Gabriela gjb The chart was reviewed and I authenticate all verbal orders and agree with the evaluation and treatment provided.Attachments: :33 [facility] Payment Agreement [facility] 12/07 10:52 T-Sheet-- Draft Copy gb Chart Complete MTDD
== END 2016-12-06 22:34 | disposition home or self-care (01) ==
LOC: M ED 20:09
DX: R04.0 Epistaxis (principal); F90.9 Attention-deficit hyperactivity disorder, unspecified type; F41.9 Anxiety disorder, unspecified; F60.3 Borderline personality disorder; F32.9 Major depressive disorder, single episode, unspecified; G43.909 Migraine, unspecified, not intractable, without status migrainosus; F10.10 Alcohol abuse, uncomplicated; F17.210 Nicotine dependence, cigarettes, uncomplicated; Z79.899 Other long term (current) drug therapy; Z88.8 Allergy status to other drugs, medicaments and biological substances
CPT/HCPCS: 36415; 85025; 96361; 96374; 99284; J2405

== ENCOUNTER → 2016-12-06 | Day surgery (SDC) | payer OTHER ==
[~2016-12-06] VITALS: Ht 170.2 cm; Wt 77.1 kg
[~2016-12-06] MED LIST changes: +BUSP10TA PO; +CELE10TA PO; +EPINEPHrine 1MG/ML INJ 30ML MD-VIAL XX ONE; +GLYCOPYRROLATE INJ 0.2 MG/ML 2 ML VIAL As Ordered ONE; +LIDOCAINE W/EPINEPHRINE 1% 20ML VIAL As Ordered ONE; +LIDOCAINE W/EPINEPHRINE 1% 20ML VIAL XX ONE; +LR 1,000 ML IV SCH; +METHYLENE BLUE 1% 10 ML VIAL (Q9968) As Ordered ONE; +MIDAZOLAM INJ 2 MG/2 ML VIAL (J2250) As Ordered ONE; +NEOSTIGMINE 1MG/ML 5 ML SYRINGE (J2710) As Ordered ONE; +NEUR300C PO; +ONDANSETRON 4MG/2ML VIAL (J2405) As Ordered ONE; +ONDANSETRON 4MG/2ML VIAL (J2405) IV PRN; +PERCOCET 5MG/325MG TAB As Ordered ONE; +ROCURONIUM BROMIDE 50 MG/5 ML VIAL As Ordered ONE; +SODIUM CHLORIDE 0.9% NASAL GEL 15MG (AYR) As Ordered ONE; +TOPA50TA7 PO; +WELLTAB40 PO; +dexameTHASONE 4 MG/ML 1ML VIAL (J1100) As Ordered ONE; +dexameTHASONE 4 MG/ML 1ML VIAL (J1100) IV ONE; +fentaNYL 100 MCG/2 ML INJECTION (J3010) As Ordered ONE
[2016-12-06] MEDS: fentaNYL 100 MCG/2 ML INJECTION (J3010) IV PRN ×4 (14:32→14:47)
[2016-12-06] MEDS: PERCOCET 5MG/325MG TAB PO PRN ×2 (14:50→15:10)
[2016-12-06 16:55] VITALS: BP 126/77
--- NOTE | 2016-12-07 08:55 | RO ---
DATE OF PROCEDURE: 12/06/2016 PREOPERATIVE DIAGNOSIS: Deviated nasal septum to the left side. POSTOPERATIVE DIAGNOSIS: Deviated nasal septum to the left side. PROCEDURE PERFORMED: Septoplasty. SURGEON: Dr. Colt Toussaint HEAD BANDER AND LINER OPERATOR: ANESTHESIA: CLINICAL PREAMBLE: This 26-year-old woman presented to the office with history of chronic nasal congestion. She has failed to respond to medical therapy. Physical examination revealed deviated nasal septum with a significant nasal septal bur on the left side of the nasal septum. Management options, including surgery, had been discussed. The patient understood and consented to the procedure. OR NARRATION: The patient was identified in preoperative holding and brought to the operating room in stable condition. In supine position on the operating room table, the patient received general anesthesia followed by oroendotracheal intubation without incident. The patient was prepped and draped in the usual fashion for the procedure. Pledgets of 1:1000 epinephrine was used to pack each side of the nasal cavity. The pledgets were removed after a waiting period. The left hemitransfixion incision was made. Mucoperichondrial and mucoperiosteal flap was developed on the left side of the nasal septum. The bony cartilaginous junction was articulated. The and perpendicular plate with nasal septal bur were isolated and resected using the cutting jig and Goodrich forceps. The maxillary crest was isolated and resected. The deviated portion of the septal cartilage was also isolated and resected. The nasal septum was returned to a more midline position at the end of the procedure. incision was fashioned on the left side of the nasal septal flap. The left hemitransfixion incision was closed using #3-0 chromic suture. The Perez splint was inserted into each side of the nasal cavity. The splints were secured anteriorly using #3-0 nylon. At the end of the procedure, sponge and instrument counts were correct. No complication was encountered. Estimated blood loss was approximately 15 mL. No complications encountered. Sponge and instrument counts were correct. General anesthesia was reversed and the patient was extubated and brought to the recovery room in stable condition.
== END ==
LOC: M SDC 09:57
PROVIDERS: ATTEND Otolaryngology
DX: J34.2 Deviated nasal septum (principal); J45.909 Unspecified asthma, uncomplicated; F41.9 Anxiety disorder, unspecified; F32.9 Major depressive disorder, single episode, unspecified; F17.210 Nicotine dependence, cigarettes, uncomplicated; Z88.8 Allergy status to other drugs, medicaments and biological substances; Z79.899 Other long term (current) drug therapy
CPT/HCPCS: 30520; 88305; J1100; J2250; J2405; J2710; J3010; Q9968

== ENCOUNTER 2016-12-09 17:25 | Emergency (ER) | payer OTHER ==
--- NOTE | 2016-12-09 18:50 | EDDOCDS ---
Nurse's Notes [facility] Name: Nadia Ibarra Age: 26 yrs Sex: Female : 1990 Arrival Date: 12/09/2016 Time: 17:25 Bed TR3 Private MD: NO PRIMARY PHYSICIAN, . Diagnosis: Nausea with vomiting, unspecified Presentation: 12/09 17:35 Presenting complaint: Patient states: that she is getting sick from the pain ms18 medications that she was prescribed. Pt had nasal surgery on 12/06/2016. Pt reports N/V and pain in her face. Adult Sepsis Screening: The patient does not have new or worsening altered mentation. Patient's respiratory rate is less than 22. Systolic blood pressure is greater than 100. Patient has a qSOFA score of 0- Negative Sepsis Screen. Suicide/Homicide risk assessment- the patient denies having any suicidal and/or homicidal ideations and does not present with any other emotional, behavioral or mental health complaints. Status: Patient is not a poultry service technician or dependent. Transition of care: patient was not received from another setting of care. 17:35 Acuity: CARROLL Level 3 ms18 17:35 Method Of Arrival: Walkin/Carried/Asstd ms18 Triage Assessment: 17:38 General: Appears in no apparent distress, uncomfortable, Behavior is appropriate for ms18 age, cooperative. Pain: Location: right cheek, nose and left cheek Pain currently is 10 out of 10 on a pain scale. HIV screening NA for this visit Offered previously. Neurological: Level of Consciousness is awake, alert, obeys commands, Oriented to person, place, time. Respiratory: Airway is patent Respiratory effort is even, unlabored. Derm: Skin is pink, warm & dry. normal. 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 BuSpar Oral 10 mg three times a day 2. Celexa 30 mg Oral once daily 3. gabapentin 300 mg Oral cap 1 cap 3 times per day 4. hydroxyzine HCl 50 mg Oral tab three times a day 5. naproxen 250 mg Oral tab 1 tab as needed 6. Revia 50 mg oral tab 1 tab once daily 7. Tenex 1 mg oral tab nightly 8. Topamax 50 mg Oral tab 1 tab 2 times per day 9. Wellbutrin XL 300 mg Oral Tb24 1 tab once daily - PMHx: ADHD; alcohol abuse; Anxiety; Borderline Personality Disorder; Depression; Migraines; - PSHx: nasal surgery; Tubal ligation; - Social history: Smoking status: Patient uses tobacco products, current every day smoker. No barriers to communication noted, The patient speaks fluent Korean. - : The pt / caregiver states he / she is not on anticoagulants. Home medication list is obtained from the patient. - Exposure Risk Screening:: None identified. Screenin:48 Screening information is obtained from the patient. Fall risk: No risks identified. jjr Assistance ADL's: requires no assistance with activities of daily living. Abuse/DV Screen: The patient / caregiver reports he/she is: not in a situation that causes fear, pain or injury. Nutritional screening: No deficits noted. Advance Directives: There is no active DNR order. home support is adequate. Assessment: 18:47 General: Appears in no apparent distress, well nourished, well groomed, dressing in jjr place beneath nose. Respiratory: Airway is patent Respiratory effort is even, unlabored, Respiratory pattern is regular. Derm: Skin is pink, warm & dry. Vital Signs: 17:26 BP 120 / 57; Pulse 59; Resp 18; Temp 98.1(O); Pulse Ox 99% on R/A; Weight 77.11 kg (R); ct3 Height 5 ft. 6 in. (167.64 cm) (R); Pain 10/10; 17:26 Body Mass Index 27.44 (77.11 kg, 167.64 cm) ct3 Vitals: 17:26 Log In Time: December 09, 2016 at 17:23. ct3 ED Course: 17:25 Patient visited by Alona Alcantara PCA. ct3 17:25 Patient moved to Waiting ct3 17:26 NO PRIMARY PHYSICIAN, . is Private Physician. ct3 17:27 Patient moved to Pre RCE ct3 17:37 Triage Initiated ms18 18:21 Patient moved to Triage 1 jjr 18:25 Paulette Mckinnon PA-C [facility]. dt4 18:25 Fernando Farnsworth MD is Attending Physician. dt4 18:25 Patient visited by Paulette Mckinnon PA-C. dt4 18:39 Colt Toussaint is Referral Physician. dt4 18:46 Patient moved to TR3 jjr 18:48 The patient / caregiver is instructed regarding the plan of care and ED course. jjr 18:48 No IV's were initiated during this patient's visit. No procedures done that require jjr assistance. Order Results: There are currently no results for this order. Outcome: 18:40 Discharge ordered by Provider. dt4 18:48 Discharge Assessment: patient administered narcotics - no. The following High Risk jjr Discharge criteria are identified: None. Discharged to home ambulatory. Condition: stable. Discharge instructions given to patient, Instructed on discharge instructions, follow up and referral plans. medication usage, Demonstrated understanding of instructions, medications, Prescriptions given X 2. No special radiology studies were completed. Property sent home with patient. 18:49 Patient left the ED. jjr Signatures: Jaelyn Pelletier, RN RN jjr Alona Alcantara, PHOTO LAB MANAGER PHOTO LAB MANAGER ct3 Paulette Mckinnon PA-C PA-C dt4 Christina SuarezRN RN ms18 MTDD
--- NOTE | 2016-12-09 18:50 | EDDOCDS ---
Physician Documentation [facility] Name: Nadia Ibarra Age: 26 yrs Sex: Female : 1990 Arrival Date: 12/09/2016 Time: 17:25 Bed TR3 Private MD: NO PRIMARY PHYSICIAN, . Disposition: 12/09/16 18:40 Discharged to Home/Self Care. Impression: Nausea with vomiting, unspecified. - Condition is Stable. - Discharge Instructions: Nausea and Vomiting. - Prescriptions for ZOFRAN ODT 4 mg Oral - dissolve 1 tablet by ORAL route 3-4 times daily As needed do not chew, do not swallow whole; 20 tablet. Diclofenac Sodium 75 mg Oral Tablet, Delayed Release (E.C.) - take 1 tablet by ORAL route every 12 hours As needed do not take any motrin/ibuprofen with this medication; 30 tablet. - Medication Reconciliation, Local Pharmacy Hours form. - Follow up: Emergency Department; When: As needed; Reason: Worsening of conditions. Follow up: Colt Toussaint; When: at your appt on 12/13/16; Reason: Wound/Symptom Recheck, Recheck today's complaints, Continuance of care. - Problem is new. - Symptoms are unchanged. Historical: - Allergies: Phenergan ("crazy"); - Home Meds: 1. BuSpar Oral 10 mg three times a day 2. Celexa 30 mg Oral once daily 3. gabapentin 300 mg Oral cap 1 cap 3 times per day 4. hydroxyzine HCl 50 mg Oral tab three times a day 5. naproxen 250 mg Oral tab 1 tab as needed 6. Revia 50 mg oral tab 1 tab once daily 7. Tenex 1 mg oral tab nightly 8. Topamax 50 mg Oral tab 1 tab 2 times per day 9. Wellbutrin XL 300 mg Oral Tb24 1 tab once daily - PMHx: ADHD; alcohol abuse; Anxiety; Borderline Personality Disorder; Depression; Migraines; - PSHx: nasal surgery; Tubal ligation; - Social history: Smoking status: Patient uses tobacco products, current every day smoker. No barriers to communication noted, The patient speaks fluent Estonian. - : The pt / caregiver states he / she is not on anticoagulants. Home medication list is obtained from the patient. - Exposure Risk Screening:: None identified. 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 6 in. (167.64 cm) (R); Pain 10/10; 17:26 Body Mass Index 27.44 (77.11 kg, 167.64 cm) ct3 MDM: 18:48 Financial registration complete. zo Signatures: Burton Duke Jessica, RN RN [email or web address] Paulette Mckinnon PA-C PAChel dt4 Christina Suarez RN RN ms18 MTDD
--- NOTE | 2016-12-11 19:50 | EDDOCDS ---
Physician Documentation [facility] Name: Nadia Ibarra Age: 26 yrs Sex: Female : 1990 Arrival Date: 12/09/2016 Time: 17:25 Bed TR3 Private MD: NO PRIMARY PHYSICIAN, . Disposition: 12/09/16 18:40 Discharged to Home/Self Care. Impression: Nausea with vomiting, unspecified. - Condition is Stable. - Discharge Instructions: Nausea and Vomiting. - Prescriptions for ZOFRAN ODT 4 mg Oral - dissolve 1 tablet by ORAL route 3-4 times daily As needed do not chew, do not swallow whole; 20 tablet. Diclofenac Sodium 75 mg Oral Tablet, Delayed Release (E.C.) - take 1 tablet by ORAL route every 12 hours As needed do not take any motrin/ibuprofen with this medication; 30 tablet. - Medication Reconciliation, Local Pharmacy Hours form. - Follow up: Emergency Department; When: As needed; Reason: Worsening of conditions. Follow up: Colt Toussaint; When: at your appt on 12/13/16; Reason: Wound/Symptom Recheck, Recheck today's complaints, Continuance of care. - Problem is new. - Symptoms are unchanged. Historical: - Allergies: Phenergan ("crazy"); - Home Meds: 1. BuSpar Oral 10 mg three times a day 2. Celexa 30 mg Oral once daily 3. gabapentin 300 mg Oral cap 1 cap 3 times per day 4. hydroxyzine HCl 50 mg Oral tab three times a day 5. naproxen 250 mg Oral tab 1 tab as needed 6. Revia 50 mg oral tab 1 tab once daily 7. Tenex 1 mg oral tab nightly 8. Topamax 50 mg Oral tab 1 tab 2 times per day 9. Wellbutrin XL 300 mg Oral Tb24 1 tab once daily - PMHx: ADHD; alcohol abuse; Anxiety; Borderline Personality Disorder; Depression; Migraines; - PSHx: nasal surgery; Tubal ligation; - Social history: Smoking status: Patient uses tobacco products, current every day smoker. No barriers to communication noted, The patient speaks fluent Sinhala. - : The pt / caregiver states he / she is not on anticoagulants. Home medication list is obtained from the patient. - Exposure Risk Screening:: None identified. 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 6 in. (167.64 cm) (R); Pain 10/10; 17:26 Body Mass Index 27.44 (77.11 kg, 167.64 cm) ct3 MDM: 18:48 Financial registration complete. zo 19:27 [facility] Payment Agreement was scanned into [employer] and attached to record. zo 22:49 T-Sheet-- Draft Copy was scanned into [employer] and attached to record. klr Signatures: Burton Duke Jessica, RN RN jjr Paulette Mckinnon, PAHeatherC PAChel dt4 Christina Suarez RN RN ms18 Holley Solomon klr The chart was reviewed and I authenticate all verbal orders and agree with the evaluation and treatment provided.Attachments: 19:27 [facility] Payment Agreement zo 22:49 T-Sheet-- Draft Copy klr Chart Complete MTDD
--- NOTE | 2016-12-11 19:50 | EDDOCDS ---
Nurse's Notes [facility] Name: Nadia Ibarra Age: 26 yrs Sex: Female : 1990 Arrival Date: 12/09/2016 Time: 17:25 Bed TR3 Private MD: NO PRIMARY PHYSICIAN, . Diagnosis: Nausea with vomiting, unspecified Presentation: 12/09 17:35 Presenting complaint: Patient states: that she is getting sick from the pain ms18 medications that she was prescribed. Pt had nasal surgery on 12/06/2016. Pt reports N/V and pain in her face. Adult Sepsis Screening: The patient does not have new or worsening altered mentation. Patient's respiratory rate is less than 22. Systolic blood pressure is greater than 100. Patient has a qSOFA score of 0- Negative Sepsis Screen. Suicide/Homicide risk assessment- the patient denies having any suicidal and/or homicidal ideations and does not present with any other emotional, behavioral or mental health complaints. Status: Patient is not a territory service representative or dependent. Transition of care: patient was not received from another setting of care. 17:35 Acuity: CARROLL Level 3 ms18 17:35 Method Of Arrival: Walkin/Carried/Asstd ms18 Triage Assessment: 17:38 General: Appears in no apparent distress, uncomfortable, Behavior is appropriate for ms18 age, cooperative. Pain: Location: right cheek, nose and left cheek Pain currently is 10 out of 10 on a pain scale. HIV screening NA for this visit Offered previously. Neurological: Level of Consciousness is awake, alert, obeys commands, Oriented to person, place, time. Respiratory: Airway is patent Respiratory effort is even, unlabored. Derm: Skin is pink, warm & dry. normal. 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 BuSpar Oral 10 mg three times a day 2. Celexa 30 mg Oral once daily 3. gabapentin 300 mg Oral cap 1 cap 3 times per day 4. hydroxyzine HCl 50 mg Oral tab three times a day 5. naproxen 250 mg Oral tab 1 tab as needed 6. Revia 50 mg oral tab 1 tab once daily 7. Tenex 1 mg oral tab nightly 8. Topamax 50 mg Oral tab 1 tab 2 times per day 9. Wellbutrin XL 300 mg Oral Tb24 1 tab once daily - PMHx: ADHD; alcohol abuse; Anxiety; Borderline Personality Disorder; Depression; Migraines; - PSHx: nasal surgery; Tubal ligation; - Social history: Smoking status: Patient uses tobacco products, current every day smoker. No barriers to communication noted, The patient speaks fluent Hebrew. - : The pt / caregiver states he / she is not on anticoagulants. Home medication list is obtained from the patient. - Exposure Risk Screening:: None identified. Screenin:48 Screening information is obtained from the patient. Fall risk: No risks identified. jjr Assistance ADL's: requires no assistance with activities of daily living. Abuse/DV Screen: The patient / caregiver reports he/she is: not in a situation that causes fear, pain or injury. Nutritional screening: No deficits noted. Advance Directives: There is no active DNR order. home support is adequate. Assessment: 18:47 General: Appears in no apparent distress, well nourished, well groomed, dressing in jjr place beneath nose. Respiratory: Airway is patent Respiratory effort is even, unlabored, Respiratory pattern is regular. Derm: Skin is pink, warm & dry. Vital Signs: 17:26 BP 120 / 57; Pulse 59; Resp 18; Temp 98.1(O); Pulse Ox 99% on R/A; Weight 77.11 kg (R); ct3 Height 5 ft. 6 in. (167.64 cm) (R); Pain 10/10; 17:26 Body Mass Index 27.44 (77.11 kg, 167.64 cm) ct3 Vitals: 17:26 Log In Time: December 09, 2016 at 17:23. ct3 ED Course: 17:25 Patient visited by Alona Alcantara PCA. ct3 17:25 Patient moved to Waiting ct3 17:26 NO PRIMARY PHYSICIAN, . is Private Physician. ct3 17:27 Patient moved to Pre RCE ct3 17:37 Triage Initiated ms18 18:21 Patient moved to Triage 1 jjr 18:25 Paulette Mckinnon PA-C [facility]. dt4 18:25 Fernando Farnsworth MD is Attending Physician. dt4 18:25 Patient visited by Paulette Mckinnon PA-C. dt4 18:39 Colt Toussaint is Referral Physician. dt4 18:46 Patient moved to TR3 jjr 18:48 The patient / caregiver is instructed regarding the plan of care and ED course. jjr 18:48 No IV's were initiated during this patient's visit. No procedures done that require jjr assistance. 19:27 [facility] Payment Agreement was scanned into [employer] and attached to record. zo 19:31 Patient name changed from Nadia\\S\\\\S\\Stacey\\S\\ to Nadia\\S\\ \\S\\Stacey. EDMS 22:49 T-Sheet-- Draft Copy was scanned into [employer] and attached to record. klr Order Results: There are currently no results for this order. Outcome: 18:40 Discharge ordered by Provider. dt4 18:48 Discharge Assessment: patient administered narcotics - no. The following High Risk jjr Discharge criteria are identified: None. Discharged to home ambulatory. Condition: stable. Discharge instructions given to patient, Instructed on discharge instructions, follow up and referral plans. medication usage, Demonstrated understanding of instructions, medications, Prescriptions given X 2. No special radiology studies were completed. Property sent home with patient. 18:49 Patient left the ED. jjr Signatures: [facility] Burton Duke Jessica, RN RN Alona Hough, SIGNALMAN SIGNALMAN ct3 Paulette Mckinnon PA-C PA-C dt4 Christina Suarez RN RN ms18 Holley Solomon r Chart Complete MTDD
--- NOTE | 2016-12-11 19:50 | EDDOCDS ---
Physician Documentation [facility] Name: Nadia Ibarra Age: 26 yrs Sex: Female : 1990 Arrival Date: 12/09/2016 Time: 17:25 Bed TR3 Private MD: NO PRIMARY PHYSICIAN, . Disposition: 12/09/16 18:40 Discharged to Home/Self Care. Impression: Nausea with vomiting, unspecified. - Condition is Stable. - Discharge Instructions: Nausea and Vomiting. - Prescriptions for ZOFRAN ODT 4 mg Oral - dissolve 1 tablet by ORAL route 3-4 times daily As needed do not chew, do not swallow whole; 20 tablet. Diclofenac Sodium 75 mg Oral Tablet, Delayed Release (E.C.) - take 1 tablet by ORAL route every 12 hours As needed do not take any motrin/ibuprofen with this medication; 30 tablet. - Medication Reconciliation, Local Pharmacy Hours form. - Follow up: Emergency Department; When: As needed; Reason: Worsening of conditions. Follow up: [facility]; When: at your appt on 12/13/16; Reason: Wound/Symptom Recheck, Recheck today's complaints, Continuance of care. - Problem is new. - Symptoms are unchanged. Historical: - Allergies: Phenergan ("crazy"); - Home Meds: 1. BuSpar Oral 10 mg three times a day 2. Celexa 30 mg Oral once daily 3. gabapentin 300 mg Oral cap 1 cap 3 times per day 4. hydroxyzine HCl 50 mg Oral tab three times a day 5. naproxen 250 mg Oral tab 1 tab as needed 6. Revia 50 mg oral tab 1 tab once daily 7. Tenex 1 mg oral tab nightly 8. Topamax 50 mg Oral tab 1 tab 2 times per day 9. Wellbutrin XL 300 mg Oral Tb24 1 tab once daily - PMHx: ADHD; alcohol abuse; Anxiety; Borderline Personality Disorder; Depression; Migraines; - PSHx: nasal surgery; Tubal ligation; - Social history: Smoking status: Patient uses tobacco products, current every day smoker. No barriers to communication noted, The patient speaks fluent Hungarian. - : The pt / caregiver states he / she is not on anticoagulants. Home medication list is obtained from the patient. - Exposure Risk Screening:: None identified. [employer]LECT[employer]ENT[employer] MECH[employer]IC: 12/09 17:38 LMP 12/09/2016 ms18 Vital Signs: 17:26 BP 120 / 57; Pulse 59; Resp 18; Temp 98.1(O); Pulse Ox 99% on R/A; Weight 77.11 kg / ct3 170 lbs (R); Height 5 ft. 6 in. (167.64 cm) (R); Pain 10/10; 17:26 Body Mass Index 27.44 (77.11 kg, 167.64 cm) ct3 MDM: 18:48 Financial registration complete. zo 19:27 [facility] Payment Agreement was scanned into [employer] and attached to record. zo 22:49 T-Sheet-- Draft Copy was scanned into [employer]mon and attached to record. klr Signatures: Burton Duke Jessica, RN RN jjr Paulette Mckinnon, PAHeatherC PAChel dt4 Christina Suarez RN RN ms18 Holley Solomon klr The chart was reviewed and I authenticate all verbal orders and agree with the evaluation and treatment provided.Attachments: 19:27 [facility] Payment Agreement zo 22:49 T-Sheet-- Draft Copy klr Chart Complete MTDD
== END 2016-12-09 18:49 | disposition home or self-care (01) ==
LOC: M ED 17:25
DX: R11.2 Nausea with vomiting, unspecified (principal); F90.9 Attention-deficit hyperactivity disorder, unspecified type; F10.10 Alcohol abuse, uncomplicated; F60.3 Borderline personality disorder; F32.9 Major depressive disorder, single episode, unspecified; G43.909 Migraine, unspecified, not intractable, without status migrainosus; F17.210 Nicotine dependence, cigarettes, uncomplicated; Z79.899 Other long term (current) drug therapy; Z88.8 Allergy status to other drugs, medicaments and biological substances

== ENCOUNTER 2017-02-21 22:58 | Emergency (ER) | payer MEDICAID, OTHER ==
[~2017-02-21] VITALS: Ht 167.6 cm; Wt 77.1 kg
[2017-02-22] MEDS ORDERED: KETOROLAC 30 MG/ML VIAL (J1885) IV ONE (05:00)
[2017-02-22 05:23] LABS: BASO % 0.3 % (0.0-1.0); EOS # 0.1 K/mm3 (0.0-0.50); EOS % 1.6 % (0.0-3.0); LARGE UNSTAINED CELL # 0.1 K/mm3 (0.0-0.4); LARGE UNSTAINED CELL % 1.2 % (0.0-4.0); LYMPH # 1.4 K/mm3 (1.5-6.5); MEAN CORPUSCULAR HEMOGLOBIN 31.8 pg (27.0-33.0); MEAN CORPUSCULAR HGB CONC 34.7 g/dl (32.0-36.5); MEAN CORPUSCULAR VOLUME 91.7 fl (80.0-96.0); MONO # 0.3 K/mm3 (0.0-0.8); MONO % 4.1 % (0.0-5.0); NEUTROPHILS # 4.5 K/mm3 (1.8-7.7); NEUTROPHILS % 70.8 % (36.0-66.0); PLATELET COUNT, AUTOMATED 168 k/mm3 (150-450); RED CELL DISTRIBUTION WIDTH 12.5 % (11.5-14.5); WHITE BLOOD COUNT 6.4 K/mm3 (4.0-10.0)
[2017-02-22 05:34] LABS: CONTROL LINE HCG INT CTR LINE PRESENT
[2017-02-22 05:42] LABS: ALBUMIN 3.5 GM/DL (3.2-5.2); ALBUMIN/GLOBULIN RATIO 1.25 (1.00-1.93); ALKALINE PHOSPHATASE 72 U/L (45-117); ALT/SGPT 21 U/L (12-78); ANION GAP 6 MEQ/L (8-16); AST/SGOT 14 U/L (15-37); BILIRUBIN,DIRECT 0.1 MG/DL (0.0-0.2); BILIRUBIN,TOTAL 0.4 MG/DL (0.2-1.0); BLOOD UREA NITROGEN 10 MG/DL (7-18); CALCIUM LEVEL 7.9 MG/DL (8.5-10.1); CARBON DIOXIDE LEVEL 28 MEQ/L (21-32); CHLORIDE LEVEL 105 MEQ/L (98-107); CREATININE FOR GFR 0.63 MG/DL (0.55-1.02); GLOMERULAR FILTRATION RATE > 60.0 (>60); GLUCOSE, FASTING 91 MG/DL (70-105); POTASSIUM SERUM 3.8 MEQ/L (3.5-5.1); SODIUM LEVEL 139 MEQ/L (136-145); TOTAL PROTEIN 6.3 GM/DL (6.4-8.2)
[2017-02-22] MEDS ORDERED: BACT800T5 PO (07:08)
[2017-02-22] MEDS ORDERED: BACTRIM 160MG/800MG DS TAB PO ONE (07:15)
[2017-02-22 07:22] VITALS: BP 106/60
== END 2017-02-22 07:23 | disposition home or self-care (01) ==
LOC: M ED 02-22 01:22
DX: L03.90 Cellulitis, unspecified (principal); N93.9 Abnormal uterine and vaginal bleeding, unspecified; Z79.899 Other long term (current) drug therapy; Z88.8 Allergy status to other drugs, medicaments and biological substances
CPT/HCPCS: 80048; 80076; 81001; 83690; 84703; 85025; 87040; 96374; 99282; J1885

== ENCOUNTER 2017-03-06 17:37 | Emergency (ER) | payer OTHER ==
[~2017-03-06] VITALS: Ht 167.6 cm; Wt 79.4 kg
[~2017-03-06 17:37] MED LIST changes: +BACT800T5 PO
[2017-03-06] MEDS ORDERED: NORCO, ANEXSIA 5/325MG TABLET (HYDROcodone/ACETAMINOPHEN) PO ONE (18:30)
--- NOTE | 2017-03-06 19:14 | REP ---
RIGHT KNEE SERIES, COMPLETE: 03/06/2017: Comparison: 11/12/2016. Clinical history: Trauma. Findings: Five views are provided. No joint space narrowing about the medial, lateral or patellofemoral joint compartments. Patellar subluxation, dislocation or suprapatellar effusion is clearly seen. No loose body, osteochondral defect. No focal bone abnormality. Impression: 1. Negative right knee series for any acute bony finding, loose body or definite joint effusion. Signed by Juan Avila MD 03/06/2017 08:40 P
[2017-03-06 19:39] VITALS: BP 117/65
== END 2017-03-06 19:42 | disposition home or self-care (01) ==
LOC: M ED 18:42
DX: S83.411A Sprain of medial collateral ligament of right knee, initial encounter (principal); W19.XXXA Unspecified fall, initial encounter; Y92.099 Unspecified place in other non-institutional residence as the place of occurrence of the external cause; Y93.89 Activity, other specified; Y99.8 Other external cause status; J45.909 Unspecified asthma, uncomplicated; F31.9 Bipolar disorder, unspecified; F17.210 Nicotine dependence, cigarettes, uncomplicated; Z88.8 Allergy status to other drugs, medicaments and biological substances; Z79.899 Other long term (current) drug therapy

== ENCOUNTER 2017-05-03 10:31 | Emergency (ER) | payer OTHER ==
[~2017-05-03] VITALS: Ht 167.6 cm; Wt 81.1 kg
[~2017-05-03 10:31] MED LIST changes: -TOPA50TA7 PO; +TOPA50TA8 PO
[2017-05-03] MEDS ORDERED: IBUP-1022 PO (10:45)
[2017-05-03] MEDS ORDERED: NORCO, ANEXSIA 5/325MG TABLET (HYDROcodone/ACETAMINOPHEN) PO ONE (11:15)
--- NOTE | 2017-05-03 11:43 | REP ---
Right ankle four views : There is no fracture or dislocation. Mineralization and joint spaces are normal. There are no calcifications or foreign bodies. Impression: Negative right ankle . Signed by Manolo Ortiz MD 05/03/2017 11:35 A
--- NOTE | 2017-05-03 11:44 | REP ---
Right foot four views : There is no fracture or dislocation. Mineralization and joint spaces are normal. There are no calcifications or foreign bodies. Impression: Negative right foot . Signed by Manolo Ortiz MD 05/03/2017 11:36 A
[2017-05-03 11:58] VITALS: BP 116/69
== END 2017-05-03 12:23 | disposition home or self-care (01) ==
LOC: M ED 10:31
DX: S93.401A Sprain of unspecified ligament of right ankle, initial encounter (principal); S93.601A Unspecified sprain of right foot, initial encounter; X58.XXXA Exposure to other specified factors, initial encounter; Y92.099 Unspecified place in other non-institutional residence as the place of occurrence of the external cause; Y93.01 Activity, walking, marching and hiking; Y99.8 Other external cause status; J45.909 Unspecified asthma, uncomplicated; F31.9 Bipolar disorder, unspecified; R51 Headache; Z88.8 Allergy status to other drugs, medicaments and biological substances; Z79.899 Other long term (current) drug therapy

== ENCOUNTER 2017-05-20 03:39 | Emergency (ER) | payer OTHER ==
[~2017-05-20] VITALS: Ht 167.6 cm; Wt 82.0 kg
[~2017-05-20 03:39] MED LIST changes: +IBUP-1022 PO
[2017-05-20] MEDS: NORCO, ANEXSIA 5/325MG TABLET (HYDROcodone/ACETAMINOPHEN) PO ONE (06:45)
[2017-05-20] MEDS: CEPHALEXIN 500 MG CAP PO ONE (06:45)
[2017-05-20] MEDS: ADACEL/BOOSTRIX VACCINE (DIPHTH/PERTUSS/ACELL/TETANUS)0.5ML SYR (90715) IM ONE (06:46)
[2017-05-20] MEDS: LIDOCAINE 2% MDV 20 ML VIAL SC ONE (06:50)
[2017-05-20] MEDS ORDERED: KEFL500C17 PO (07:20)
[2017-05-20 07:26] VITALS: BP 114/69
== END 2017-05-20 07:30 | disposition home or self-care (01) ==
LOC: M ED 03:39
DX: S61.421A Laceration with foreign body of right hand, initial encounter (principal); S60.221A Contusion of right hand, initial encounter; W18.09XA Striking against other object with subsequent fall, initial encounter; W25.XXXA Contact with sharp glass, initial encounter; Y92.410 Unspecified street and highway as the place of occurrence of the external cause; Y93.89 Activity, other specified; Y99.8 Other external cause status; J45.909 Unspecified asthma, uncomplicated; F31.9 Bipolar disorder, unspecified; R51 Headache; F17.200 Nicotine dependence, unspecified, uncomplicated; Z79.899 Other long term (current) drug therapy

== ENCOUNTER 2017-05-21 22:05 | Emergency (ER) | payer OTHER ==
[~2017-05-21] VITALS: Ht 170.2 cm; Wt 84.4 kg
[~2017-05-21 22:05] MED LIST changes: +KEFL500C17 PO
[2017-05-22] MEDS ORDERED: HYDROmorphone HCL 1 MG/ML SYRINGE (J1170) IM ONE (02:45)
[2017-05-22] MEDS ORDERED: NORCO 5/325MG TABLET (BULK FOR ED) PO ONE (02:45)
[2017-05-22 02:53] VITALS: BP 127/80
--- NOTE | 2017-05-22 08:06 | REP ---
Right hand two views : There is no fracture or dislocation. Mineralization and joint spaces are normal. There are no calcifications or foreign bodies. Impression: Negative right hand. There is no change from 06/21/2015. . Signed by Manolo Ortiz MD 05/22/2017 07:58 A
== END 2017-05-22 03:01 | disposition home or self-care (01) ==
LOC: M ED 22:05
DX: M79.641 Pain in right hand (principal); S61.421D Laceration with foreign body of right hand, subsequent encounter; W18.09XD Striking against other object with subsequent fall, subsequent encounter; W25.XXXD Contact with sharp glass, subsequent encounter; Y92.410 Unspecified street and highway as the place of occurrence of the external cause; Y93.89 Activity, other specified; Y99.8 Other external cause status; J45.909 Unspecified asthma, uncomplicated; F32.9 Major depressive disorder, single episode, unspecified; F17.200 Nicotine dependence, unspecified, uncomplicated; Z79.899 Other long term (current) drug therapy; Z88.8 Allergy status to other drugs, medicaments and biological substances
CPT/HCPCS: 73120; 99282; J1170

== ENCOUNTER 2017-05-29 11:34 | Emergency (ER) | payer OTHER ==
[~2017-05-29] VITALS: Ht 167.6 cm; Wt 84.1 kg
[2017-05-29 11:34] VITALS: BP 129/70
== END 2017-05-29 12:56 | disposition home or self-care (01) ==
LOC: M ED 11:34
DX: Z48.02 Encounter for removal of sutures (principal)

== ENCOUNTER 2017-09-24 09:08 | Emergency (ER) | payer MEDICAID, OTHER ==
[~2017-09-24] VITALS: Ht 170.2 cm; Wt 81.8 kg
[2017-09-24 09:09] VITALS: BP 121/72
[2017-09-24] MEDS ORDERED: PSEUDOEPHEDRINE 30 MG TAB PO STA (09:29)
[2017-09-24] MEDS ORDERED: SUDA30TA8 PO (09:31)
== END 2017-09-24 09:56 | disposition home or self-care (01) ==
LOC: M ED 09:08
DX: J06.9 Acute upper respiratory infection, unspecified (principal); B34.9 Viral infection, unspecified; F17.210 Nicotine dependence, cigarettes, uncomplicated; F31.9 Bipolar disorder, unspecified; Z79.899 Other long term (current) drug therapy; Z88.8 Allergy status to other drugs, medicaments and biological substances; Z98.890 Other specified postprocedural states

== ENCOUNTER 2017-10-24 11:53 | Emergency (ER) | payer OTHER ==
[~2017-10-24] VITALS: Ht 170.2 cm; Wt 77.3 kg
[2017-10-24 11:53] VITALS: BP 132/69
[~2017-10-24 11:53] MED LIST changes: +SUDA30TA8 PO
[2017-10-24] MEDS ORDERED: BUSP10TA PO (13:32)
[2017-10-24] MEDS ORDERED: AMOX500C PO (13:32)
[2017-10-24] MEDS ORDERED: CITA10TA5 PO (13:32)
[2017-10-24] MEDS ORDERED: BUPR300T34 PO (13:32)
[2017-10-24] MEDS ORDERED: GABA-282 PO (13:32)
== END 2017-10-24 14:40 | disposition home or self-care (01) ==
LOC: M ED 11:53
DX: K05.10 Chronic gingivitis, plaque induced (principal); F31.9 Bipolar disorder, unspecified; Z72.0 Tobacco use

== ENCOUNTER 2017-11-07 12:04 | Emergency (ER) | payer OTHER ==
[2017-11-07] MEDS: PERCOCET 5MG/325MG TAB PO (15:28)
== END 2017-11-07 17:40 | disposition home or self-care (01) ==
LOC: M ED 12:04
DX: S13.4XXA Sprain of ligaments of cervical spine, initial encounter (principal); S00.12XA Contusion of left eyelid and periocular area, initial encounter; S00.83XA Contusion of other part of head, initial encounter; S30.0XXA Contusion of lower back and pelvis, initial encounter; F17.200 Nicotine dependence, unspecified, uncomplicated; Y04.0XXA Assault by unarmed brawl or fight, initial encounter; Y92.59 Other trade areas as the place of occurrence of the external cause
CPT/HCPCS: 70450

== ENCOUNTER → 2018-03-19 | Outpatient (CLI) | payer OTHER | LOC: M RAD 11:21 | DX: M54.5 Low back pain (principal) | CPT/HCPCS: 72080 ==

== ENCOUNTER 2018-04-05 14:27 | Emergency (ER) | payer OTHER | END 2018-04-05 15:32 | disposition home or self-care (01) | LOC: M ED 14:27 | DX: Z76.0 Encounter for issue of repeat prescription (principal); M25.511 Pain in right shoulder; F31.9 Bipolar disorder, unspecified; F90.9 Attention-deficit hyperactivity disorder, unspecified type; J45.909 Unspecified asthma, uncomplicated; G43.909 Migraine, unspecified, not intractable, without status migrainosus; Z88.8 Allergy status to other drugs, medicaments and biological substances; Z79.899 Other long term (current) drug therapy | CPT/HCPCS: 99282 ==

== ENCOUNTER 2018-05-26 19:36 | Emergency (ER) | payer OTHER, MEDICAID ==
[2018-05-26] MEDS: ONDANSETRON 4 MG ORAL DISINTEGRATING TAB (Q0162 PER 1MG) PO (20:15)
[2018-05-26] MEDS: PERCOCET 5MG/325MG TAB PO (20:15)
[2018-05-26] MEDS: OXYCODONE/APAP 5MG/325MG(BULK FOR ED) 1 TABLET PO (22:00)
== END 2018-05-26 22:04 | disposition home or self-care (01) ==
LOC: M ED 19:36
DX: S09.90XA Unspecified injury of head, initial encounter (principal); S40.021A Contusion of right upper arm, initial encounter; Y04.8XXA Assault by other bodily force, initial encounter; Y92.410 Unspecified street and highway as the place of occurrence of the external cause; F17.210 Nicotine dependence, cigarettes, uncomplicated; Z88.8 Allergy status to other drugs, medicaments and biological substances; Z79.899 Other long term (current) drug therapy
CPT/HCPCS: Q0162

== ENCOUNTER → 2018-08-16 | Outpatient (REF) | payer OTHER, MEDICAID ==
[2018-08-16 19:08] LABS: CONTROL LINE UCG INT CTR LINE PRESENT; URINE PREG TEST NEGATIVE (NEGATIVE)
== END ==
LOC: M LAB REF 18:50
DX: N64.4 Mastodynia (principal)
CPT/HCPCS: 84703

== ENCOUNTER 2018-08-17 16:26 | Emergency (ER) | payer OTHER, MEDICAID ==
[2018-08-17] MEDS: PERCOCET 5MG/325MG TAB PO (17:20)
== END 2018-08-17 17:23 | disposition home or self-care (01) ==
LOC: M ED 16:26
DX: N64.4 Mastodynia (principal); M54.9 Dorsalgia, unspecified; F90.9 Attention-deficit hyperactivity disorder, unspecified type; F31.9 Bipolar disorder, unspecified; F17.210 Nicotine dependence, cigarettes, uncomplicated; Z88.8 Allergy status to other drugs, medicaments and biological substances; Z79.899 Other long term (current) drug therapy
CPT/HCPCS: 99284

== ENCOUNTER 2018-08-26 18:21 | Emergency (ER) | payer OTHER ==
[2018-08-26] MEDS: AMOXICILLIN 500 MG CAP PO (19:19)
[2018-08-26] MEDS: IBUPROFEN 800 MG TAB PO (19:20)
== END 2018-08-26 19:30 | disposition home or self-care (01) ==
LOC: M ED 18:21
DX: J02.0 Streptococcal pharyngitis (principal); J45.909 Unspecified asthma, uncomplicated; G43.909 Migraine, unspecified, not intractable, without status migrainosus; F17.210 Nicotine dependence, cigarettes, uncomplicated
CPT/HCPCS: 87880

== ENCOUNTER 2018-11-28 19:04 | Emergency (ER) | payer OTHER ==
[~2018-11-28] VITALS: Ht 172.7 cm; Wt 79.5 kg
[~2018-11-28 19:04] MED LIST changes: +AMOX500C PO; +APAP500T10 PO; +BUPR300T34 PO; +CITA10TA5 PO; +CYCL10TA PO; +EFFE37.5 PO; +GABA-843 PO; +GABA600T4; +GABA600T4 PO; +HYDR50TA70; +MOBI4TAB PO; +PERC5TAB12 PO; +ROBA500T PO; +SKEL800T97 PO; +ZOFR4TAB14 PO
[2018-11-28] MEDS ORDERED: PERCOCET 5MG/325MG TAB PO ONE (21:45)
[2018-11-28 22:12] VITALS: BP 103/59
== END 2018-11-28 22:14 | disposition home or self-care (01) ==
LOC: M ED 19:04
DX: K08.89 Other specified disorders of teeth and supporting structures (principal); J45.909 Unspecified asthma, uncomplicated; G43.909 Migraine, unspecified, not intractable, without status migrainosus; F41.9 Anxiety disorder, unspecified; F90.9 Attention-deficit hyperactivity disorder, unspecified type; F31.9 Bipolar disorder, unspecified

== ENCOUNTER 2018-12-10 16:58 | Emergency (ER) | payer OTHER ==
[~2018-12-10] VITALS: Ht 170.2 cm; Wt 79.5 kg
[2018-12-10 16:59] VITALS: BP 126/73
[2018-12-10] MEDS ORDERED: NAPR-50 PO (18:33)
--- NOTE | 2018-12-10 20:26 | REP ---
RIGHT ANKLE, FOUR VIEWS: ANKLE: There is no evidence of an acute fracture, dislocation or intrinsic bone disease. IMPRESSION: No fracture or dislocation. Electronically Signed by Manolo Caldwell MD 12/12/2018 01:26 P
== END 2018-12-10 18:39 | disposition home or self-care (01) ==
LOC: M ED 16:58
DX: S93.401A Sprain of unspecified ligament of right ankle, initial encounter (principal); X50.0XXA Overexertion from strenuous movement or load, initial encounter; Y92.89 Other specified places as the place of occurrence of the external cause; F31.9 Bipolar disorder, unspecified; F90.9 Attention-deficit hyperactivity disorder, unspecified type; F41.9 Anxiety disorder, unspecified; F60.3 Borderline personality disorder; M54.9 Dorsalgia, unspecified; R51 Headache; J45.909 Unspecified asthma, uncomplicated; F17.200 Nicotine dependence, unspecified, uncomplicated; Z88.8 Allergy status to other drugs, medicaments and biological substances; Z79.899 Other long term (current) drug therapy

== ENCOUNTER 2019-03-14 17:35 | Emergency (ER) | payer OTHER ==
[~2019-03-14] VITALS: Ht 170.2 cm; Wt 73.2 kg
[~2019-03-14 17:35] MED LIST changes: -ACET50TA PO; +MAPA500T17 PO; +NAPR-837 PO
[2019-03-14] MEDS ORDERED: ALBUTEROL SULFATE 2.5 MG/0.5 ML INH NEB SOLN NEB ONE (18:45)
[2019-03-14 19:44] LABS: INFLUENZA A AMPLIFICATION NEGATIVE (NEGATIVE); INFLUENZA B AMPLIFICATION NEGATIVE (NEGATIVE)
[2019-03-14 20:33] VITALS: BP 125/62
[2019-03-14] MEDS ORDERED: PRED20TA PO (21:27)
[2019-03-14] MEDS ORDERED: ZITHTAB PO (21:27)
[2019-03-14] MEDS ORDERED: VENTAER INH (21:27)
[2019-03-14] MEDS ORDERED: ONDA4TAB6 PO (21:28)
[2019-03-14] MEDS ORDERED: predniSONE 20 MG TAB PO ONE (21:30)
[2019-03-14] MEDS ORDERED: AZITHROMYCIN 250 MG TAB PO ONE (21:30)
--- NOTE | 2019-03-15 01:08 | REP ---
Clinical: Shortness of breath . Comparison: 04/27/2014 . Technique: PA and lateral. Findings: The mediastinum and cardiac silhouette are normal. The lung echols are clear and without acute consolidation, effusion, or pneumothorax. The skeletal structures are intact and normal. Impression: 1. No acute cardiopulmonary process. Electronically Signed by Jason Cortés MD 03/15/2019 12:59 A
== END 2019-03-14 21:39 | disposition home or self-care (01) ==
LOC: M ED 17:35
DX: J18.9 Pneumonia, unspecified organism (principal); J45.901 Unspecified asthma with (acute) exacerbation; F31.9 Bipolar disorder, unspecified; F90.9 Attention-deficit hyperactivity disorder, unspecified type; F60.3 Borderline personality disorder; G43.909 Migraine, unspecified, not intractable, without status migrainosus; Z88.8 Allergy status to other drugs, medicaments and biological substances; F17.210 Nicotine dependence, cigarettes, uncomplicated

== ENCOUNTER 2019-03-16 11:49 | Emergency (ER) | payer OTHER ==
[~2019-03-16] VITALS: Ht 170.2 cm; Wt 73.2 kg
[~2019-03-16 11:49] MED LIST changes: +ONDA4TAB6 PO; +PRED20TA PO; +VENTAER INH; +ZITHTAB PO
[2019-03-16] MEDS ORDERED: ONDANSETRON 4MG/2ML VIAL (J2405) IV ONE (13:30)
[2019-03-16] MEDS ORDERED: NS 1,000 ML IV ONE (13:30)
[2019-03-16] MEDS ORDERED: IPRATROPIUM 0.5MG/ALBUTEROL 2.5MG INH SOL UD 3ML (DUONEB)(J7620) NEB ONE (13:30)
[2019-03-16 13:42] LABS: BASO % 0.2 % (0.0-1.0); EOS % 0.2 % (0.0-3.0); HEMATOCRIT 39.1 % (36.0-47.0); HEMOGLOBIN 13.4 g/dl (12.0-15.5); LYMPH # 0.9 10^3/uL (1.5-4.5); LYMPH % 14.1 % (24.0-44.0); MEAN CORPUSCULAR HEMOGLOBIN 31.2 pg (27.0-33.0); MEAN CORPUSCULAR HGB CONC 34.3 g/dl (32.0-36.5); MEAN CORPUSCULAR VOLUME 91.1 fl (80.0-96.0); MONO # 0.2 10^3/uL (0.0-0.8); MONO % 3.9 % (0.0-5.0); NEUTROPHILS % 81.4 % (36.0-66.0); PLATELET COUNT, AUTOMATED 182 10^3/uL (150-450); RED BLOOD COUNT 4.29 10^6/uL (4.00-5.40); WHITE BLOOD COUNT 6.2 10^3/uL (4.0-10.0)
[2019-03-16 14:00] LABS: BLOOD UREA NITROGEN 7 MG/DL (7-18); CALCIUM LEVEL 8.5 MG/DL (8.5-10.1); CARBON DIOXIDE LEVEL 27 MEQ/L (21-32); CHLORIDE LEVEL 109 MEQ/L (98-107); CREATININE FOR GFR 0.61 MG/DL (0.55-1.30); GLOMERULAR FILTRATION RATE > 60.0 (>60); GLUCOSE, FASTING 98 MG/DL (70-100); POTASSIUM SERUM 3.7 MEQ/L (3.5-5.1); SODIUM LEVEL 142 MEQ/L (136-145)
[2019-03-16] MEDS ORDERED: ACETAMINOPHEN 325 MG TAB PO ONE (14:45)
[2019-03-16 15:24] VITALS: BP 120/62
== END 2019-03-16 15:25 | disposition home or self-care (01) ==
LOC: M ED 11:49
DX: J20.9 Acute bronchitis, unspecified (principal); R11.2 Nausea with vomiting, unspecified; F17.210 Nicotine dependence, cigarettes, uncomplicated; Z88.8 Allergy status to other drugs, medicaments and biological substances; Z79.899 Other long term (current) drug therapy; Z79.2 Long term (current) use of antibiotics
CPT/HCPCS: 80048; 85025; 94640; 96361; 96374; 99284; J2405

== ENCOUNTER → 2019-03-22 | Outpatient (REF) | payer OTHER, MEDICAID ==
[2019-03-22 18:11] LABS: CHLAMYDIA DNA AMPLIFICATION NEGATIVE (NEGATIVE); GC DNA AMPLIFICATION NEGATIVE (NEGATIVE)
[2019-03-27 00:08] LABS: HPV HYBRID CAPTURE II HI RISK Negative (Negative); HPV HYBRID CAPTURE II LOW RISK Negative (Negative)
== END ==
LOC: M LAB REF 16:31
PROVIDERS: ATTEND Family Medicine Addiction Medicine
DX: Z12.4 Encounter for screening for malignant neoplasm of cervix (principal); N87.0 Mild cervical dysplasia

== ENCOUNTER 2019-06-15 18:26 | Emergency (ER) | payer MEDICAID, OTHER ==
[~2019-06-15] VITALS: Ht 170.2 cm; Wt 71.8 kg
[2019-06-15] MEDS ORDERED: SUBO12MI (18:33)
[2019-06-15] MEDS ORDERED: NS 1,000 ML IV ONE (19:30)
[2019-06-15] MEDS ORDERED: MORPHINE 4 MG/ML 1ML VIAL/SYRINGE (J2270) IV ONE (19:30)
[2019-06-15 19:37] LABS: BASO % 0.3 % (0.0-1.0); EOS # 0.1 10^3/uL (0.0-0.50); EOS % 1.8 % (0.0-3.0); HEMATOCRIT 39.2 % (36.0-47.0); HEMOGLOBIN 13.4 g/dl (12.0-15.5); LYMPH # 2.5 10^3/uL (1.5-4.5); LYMPH % 40.5 % (24.0-44.0); MEAN CORPUSCULAR HEMOGLOBIN 31.8 pg (27.0-33.0); MEAN CORPUSCULAR HGB CONC 34.2 g/dl (32.0-36.5); MEAN CORPUSCULAR VOLUME 92.9 fl (80.0-96.0); MONO # 0.4 10^3/uL (0.0-0.8); MONO % 5.8 % (0.0-5.0); NEUTROPHILS # 3.2 10^3/uL (1.8-7.7); NEUTROPHILS % 51.6 % (36.0-66.0); PLATELET COUNT, AUTOMATED 185 10^3/uL (150-450); RED BLOOD COUNT 4.22 10^6/uL (4.00-5.40); WHITE BLOOD COUNT 6.2 10^3/uL (4.0-10.0)
[2019-06-15] MEDS ORDERED: ISOVUE-370 76% 100ML VIAL (Q9967) As Ordered ONE (19:43)
[2019-06-15 19:57] LABS: ALT/SGPT 18 U/L (12-78); BILIRUBIN,DIRECT < 0.1 MG/DL (0.0-0.2); BILIRUBIN,TOTAL 0.2 MG/DL (0.2-1.0); LIPASE 100 U/L (73-393); TOTAL PROTEIN 6.7 GM/DL (6.4-8.2)
--- NOTE | 2019-06-15 20:23 | REPVR ---
EXAM: CT Abdomen and Pelvis With Contrast EXAM DATE/TIME: 06/15/2019 7:45 PM CLINICAL HISTORY: 29 years old, female; Abdominal pain; Generalized; Additional info: Distention, lower abd pain TECHNIQUE: Imaging protocol: Axial computed tomography images of the abdomen and pelvis with intravenous contrast. Coronal and sagittal reformatted images were created and reviewed. Radiation optimization: All CT scans at this facility use at least one of these dose optimization techniques: automated exposure control; mA and/or kV adjustment per patient size (includes targeted exams where dose is matched to clinical indication); or iterative reconstruction. Contrast material: ISOVUE 370;Contrast volume: 100 ml;Contrast route: IV; COMPARISON: CT ABD/PEL W/IV CONTRAST ONLY 06/12/2018 9:47 PM FINDINGS: Liver: Unremarkable. Gallbladder and bile ducts: No radiodense gallstones. No biliary ductal dilatation. Pancreas: Unremarkable. Spleen: Unremarkable. Adrenals: Unremarkable. Kidneys and ureters: No mass. No radiodense calculi. No hydronephrosis. Stomach and bowel: No bowel wall thickening. No obstruction. No pneumatosis. Appendix: Normal. Intraperitoneal space: Trace nonspecific free pelvic fluid, likely physiologic. No organized fluid collection. No free air. Vasculature: Unremarkable. No aneurysm. Lymph nodes: No pathologically enlarged lymph nodes. Bladder: Mild circumferential urinary bladder wall thickening, likely secondary to underdistention. Reproductive: Unremarkable. Bones/joints: No acute osseous abnormality. Soft tissues: Unremarkable. IMPRESSION: 1. No CT evidence of acute intra-abdominal or pelvic pathology. 2. Additional findings, as above. Electronically signed by: Rayray Hylton On 06/15/2019 20:23:23 PM
[2019-06-15] MEDS ORDERED: KETO10TAB PO (21:23)
[2019-06-15 21:31] VITALS: BP 128/80
[2019-06-15] MEDS ORDERED: FLAG500T PO (21:39)
[2019-06-15 23:09] LABS: CHLAMYDIA DNA AMPLIFICATION NEGATIVE (NEGATIVE); GC DNA AMPLIFICATION NEGATIVE (NEGATIVE)
== END 2019-06-15 21:42 | disposition home or self-care (01) ==
LOC: M ED 18:26
DX: N76.0 Acute vaginitis (principal); J45.909 Unspecified asthma, uncomplicated; Z88.8 Allergy status to other drugs, medicaments and biological substances; F17.210 Nicotine dependence, cigarettes, uncomplicated
CPT/HCPCS: 74177; 80047; 80076; 81001; 83690; 84702; 85025; 87210; 87491; 87591; 96361; 96374; 99284; J2270; Q9967

== ENCOUNTER → 2019-06-26 | Outpatient (CLI) | payer OTHER ==
[~2019-06-26] MED LIST changes: +FLAG500T PO; +KETO10TAB PO; +SUBO12MI
--- NOTE | 2019-06-26 14:33 | REP ---
Left breast ultrasound: The the patient is a 29 female with a palpable left breast mass at 11 o'clock location. Ultrasonography of the palpable lump is performed from the 10 o'clock to the 12 o'clock locations. By ultrasound. There is nodular parenchymal. There is no nodule, mass or cyst identified by ultrasound. Impression: No nodule, mass or cyst is identified in the location of the palpable lump at the 10 o'clock location of the left breast. BIRADS category one negative left breast ultrasound. Negative ultrasound reports should not delay biopsy if a dominant or clinically suspicious mass is present. Electronically Signed by Manolo Ortiz MD 06/26/2019 02:24 P
--- NOTE | 2019-06-26 16:15 | REP ---
BILATERAL MAMMOGRAM WITH 3D TOMOSYNTHESIS, DIAGNOSTIC MAMMOGRAM LEFT BREAST AND LEFT BREAST ULTRASOUND: No family history of breast cancer. Aramis Walls lifetime risk of breast cancer 10.1%. There is a history of a palpable lump in the left axillary region which is marked on the skin. There are no prior studies for comparison. MLO and CC views of both breasts performed with 3D tomosynthesis. There is heterogeneously dense fibroglandular tissue bilaterally in a fairly symmetrical pattern. I see no mass, architectural distortion or clustered microcalcifications. Additional spot compression views of the region of the palpable lump demonstrate no abnormalities. Real-time sonographic evaluation of the left axillary region performed in the region of the palpable abnormality. This is in the far posterior upper outer quadrant region. No cystic or solid nodule is seen. IMPRESSION: ACR 1 negative mammogram. No mass or clustered microcalcifications visualized bilaterally. On the left, the site of the palpable lump in the left axillary region there is no mammographic or sonographic evidence of cystic or solid mass. A negative mammogram and ultrasound should not deter biopsy if there is a clinically suspicious palpable mass present. Clinical correlation and followup recommended. BIRADS 1: BI-RADS/ACR category 1 mammogram. Negative Mammogram. This mammogram was interpreted with the aid of an FDA-approved computer-aided detection system. The patient states she/he has not had a clinical breast exam in over a year. The patient letter being requested is M2. Electronically Signed by Manolo Caldwell MD 06/28/2019 10:47 A
== END ==
LOC: M RAD 13:25
PROVIDERS: ATTEND Family Medicine Addiction Medicine
DX: N63.22 Unspecified lump in the left breast, upper inner quadrant (principal)
CPT/HCPCS: 76642; 77066; G0279

== ENCOUNTER 2019-11-01 18:08 | Emergency (ER) | payer OTHER ==
[~2019-11-01] VITALS: Ht 170.2 cm; Wt 75.1 kg
[2019-11-01] MEDS ORDERED: ZOLO25TA PO (18:22)
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
[2019-11-01] MEDS ORDERED: ACETAMINOPHEN 500 MG TAB PO ONE (20:15)
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
[2019-11-01 22:01] VITALS: BP 118/67
== END 2019-11-01 22:03 | disposition home or self-care (01) ==
LOC: M ED 18:08
DX: S09.90XA Unspecified injury of head, initial encounter (principal); S16.1XXA Strain of muscle, fascia and tendon at neck level, initial encounter; S40.012A Contusion of left shoulder, initial encounter; S70.02XA Contusion of left hip, initial encounter; V49.49XA Driver injured in collision with other motor vehicles in traffic accident, initial encounter; Y92.410 Unspecified street and highway as the place of occurrence of the external cause; J45.909 Unspecified asthma, uncomplicated; F31.9 Bipolar disorder, unspecified; F60.3 Borderline personality disorder; Z79.899 Other long term (current) drug therapy; Z79.891 Long term (current) use of opiate analgesic; Z88.8 Allergy status to other drugs, medicaments and biological substances; F17.210 Nicotine dependence, cigarettes, uncomplicated

== ENCOUNTER 2019-12-22 19:53 | Emergency (ER) | payer OTHER ==
[~2019-12-22] VITALS: Ht 170.2 cm; Wt 75.0 kg
[~2019-12-22 19:53] MED LIST changes: -BUPR300T34 PO; +BUPR300T92 PO; +ZOLO25TA PO
[2019-12-22 19:55] VITALS: BP 143/86
[2019-12-22] MEDS ORDERED: NORCO, ANEXSIA 5/325MG TABLET (HYDROcodone/ACETAMINOPHEN) PO ONE (21:00)
[2019-12-22 21:05] LABS: BASO % 0.4 % (0.0-1.0); EOS # 0.1 10^3/uL (0.0-0.5); EOS % 1.2 % (0.0-3.0); HEMATOCRIT 38.9 % (36.0-47.0); HEMOGLOBIN 13.5 g/dl (12.0-15.5); LYMPH % 40.6 % (24.0-44.0); MEAN CORPUSCULAR HEMOGLOBIN 30.9 pg (27.0-33.0); MEAN CORPUSCULAR HGB CONC 34.7 g/dl (32.0-36.5); MONO # 0.3 10^3/uL (0.0-0.8); MONO % 4.5 % (0.0-5.0); NEUTROPHILS # 3.9 10^3/uL (1.5-8.5); PLATELET COUNT, AUTOMATED 199 10^3/uL (150-450); RED BLOOD COUNT 4.37 10^6/uL (4.00-5.40); WHITE BLOOD COUNT 7.4 10^3/uL (4.0-10.0)
== END 2019-12-22 21:55 | disposition left against medical advice (07) ==
LOC: M ED 19:53
DX: N92.0 Excessive and frequent menstruation with regular cycle (principal); J45.909 Unspecified asthma, uncomplicated; Z88.8 Allergy status to other drugs, medicaments and biological substances; F17.210 Nicotine dependence, cigarettes, uncomplicated

== ENCOUNTER → 2020-02-05 | Outpatient (REF) | payer OTHER ==
[2020-02-05 16:44] LABS: BASO % 0.4 % (0.0-1.0); EOS # 0.1 10^3/uL (0.0-0.5); HEMATOCRIT 40.7 % (36.0-47.0); HEMOGLOBIN 13.9 g/dl (12.0-15.5); LYMPH # 1.7 10^3/uL (1.5-5.0); LYMPH % 34.8 % (24.0-44.0); MEAN CORPUSCULAR HGB CONC 34.2 g/dl (32.0-36.5); MEAN CORPUSCULAR VOLUME 90.6 fl (80.0-96.0); MONO # 0.3 10^3/uL (0.0-0.8); MONO % 5.7 % (0.0-5.0); NEUTROPHILS # 2.8 10^3/uL (1.5-8.5); NEUTROPHILS % 57.9 % (36.0-66.0); PLATELET COUNT, AUTOMATED 205 10^3/uL (150-450); RED BLOOD COUNT 4.49 10^6/uL (4.00-5.40); WHITE BLOOD COUNT 4.8 10^3/uL (4.0-10.0)
[2020-02-05 17:14] LABS: ALBUMIN 4.1 GM/DL (3.2-5.2); ALT/SGPT 22 U/L (12-78); BILIRUBIN,TOTAL 0.4 MG/DL (0.2-1.0); BLOOD UREA NITROGEN 11 MG/DL (7-18); CALCIUM LEVEL 8.9 MG/DL (8.5-10.1); CARBON DIOXIDE LEVEL 27 MEQ/L (21-32); CHLORIDE LEVEL 110 MEQ/L (98-107); CREATININE FOR GFR 0.72 MG/DL (0.55-1.30); GLOMERULAR FILTRATION RATE > 60.0 (>60); GLUCOSE, FASTING 81 MG/DL (70-100); POTASSIUM SERUM 4.1 MEQ/L (3.5-5.1); SODIUM LEVEL 140 MEQ/L (136-145)
== END ==
LOC: M LAB REF 16:14
PROVIDERS: ATTEND Family Medicine Addiction Medicine
DX: N92.0 Excessive and frequent menstruation with regular cycle (principal)

== ENCOUNTER 2020-07-08 15:00 | Emergency (ER) | payer OTHER ==
[~2020-07-08] VITALS: Ht 160 cm; Wt 74.3 kg
[~2020-07-08 15:00] MED LIST changes: +CYCL-707 PO; -CYCL10TA PO
[2020-07-08] MEDS ORDERED: BUPR1FIL3 (15:12)
[2020-07-08 15:49] LABS: BASO % 0.2 % (0.0-1.0); EOS # 0.1 10^3/uL (0.0-0.5); EOS % 1.7 % (0.0-3.0); HEMATOCRIT 39.7 % (36.0-47.0); HEMOGLOBIN 13.5 g/dl (12.0-15.5); LYMPH # 2.3 10^3/uL (1.5-5.0); LYMPH % 45.4 % (24.0-44.0); MEAN CORPUSCULAR VOLUME 91.1 fl (80.0-96.0); MONO # 0.3 10^3/uL (0.0-0.8); MONO % 5.2 % (0.0-5.0); NEUTROPHILS # 2.4 10^3/uL (1.5-8.5); NEUTROPHILS % 47.3 % (36.0-66.0); PLATELET COUNT, AUTOMATED 195 10^3/uL (150-450); RED BLOOD COUNT 4.36 10^6/uL (4.00-5.40); WHITE BLOOD COUNT 5.2 10^3/uL (4.0-10.0)
[2020-07-08 16:12] LABS: HCG, SERUM QUALITATIVE NEGATIVE (NEGATIVE)
[2020-07-08 16:19] LABS: ALBUMIN 3.9 GM/DL (3.2-5.2); ALT/SGPT 24 U/L (12-78); BILIRUBIN,DIRECT < 0.1 MG/DL (0.0-0.2); BILIRUBIN,TOTAL 0.2 MG/DL (0.2-1.0); BLOOD UREA NITROGEN 10 MG/DL (7-18); CALCIUM LEVEL 8.9 MG/DL (8.5-10.1); CARBON DIOXIDE LEVEL 24 MEQ/L (21-32); CHLORIDE LEVEL 110 MEQ/L (98-107); CK-MB VALUE MASS 1.3 NG/ML (<3.6); CPK CREATINE PHOSPHOKINASE 140 U/L (26-192); CREATININE FOR GFR 0.74 MG/DL (0.55-1.30); GLOMERULAR FILTRATION RATE > 60.0 (>60); GLUCOSE, FASTING 85 MG/DL (70-100); LIPASE 91 U/L (73-393); MB/CK RELATIVE INDEX 0.93 (< OR =4); POTASSIUM SERUM 3.9 MEQ/L (3.5-5.1); SODIUM LEVEL 141 MEQ/L (136-145); TOTAL PROTEIN 6.8 GM/DL (6.4-8.2); TROPONIN I < 0.02 NG/ML (< 0.10)
[2020-07-08] MEDS ORDERED: KETOROLAC 30 MG/ML 1ML VIAL IV ONE (16:30)
[2020-07-08] MEDS ORDERED: NS 1,000 ML IV ONE (16:30)
--- NOTE | 2020-07-08 17:30 | REPVR ---
PROCEDURE INFORMATION: Exam: US Pelvis Complete, Transabdominal and US Pelvis, Transvaginal Exam date and time: 07/08/2020 5:16 PM Age: 30 years old Clinical indication: Pelvic pain; Additional info: Lower abd pain/amenorrhea TECHNIQUE: Imaging protocol: Real-time transabdominal and transvaginal pelvic ultrasound (complete) with image documentation. Transvaginal imaging was used for better evaluation of the endometrium and adnexa. COMPARISON: US PELVIC NON-OB COMPLETE 08/29/2016 12:28 PM FINDINGS: Uterus/cervix: Uterus measures 8.3 x 4.3 x 5.8 cm. Endometrial echo complex measures 3.9 mm. Several focal calcifications demonstrated along the endometrium may be the result of prior instrumentation or endometritis. Right adnexa: Normal. No mass. Normal ovarian blood flow. Left adnexa: Normal. No mass. Normal ovarian blood flow. Intraperitoneal space: There is minimal fluid in the cul-de-sac most likely physiologic. Clinical correlation to exclude other causes of cul-de-sac fluid suggested. Bladder: Normal. IMPRESSION: 1. Endometrial calcifications may be related to prior instrumentation and/or infection. 2. Otherwise unremarkable. Electronically signed by: Kristofer Hanks On 07/08/2020 17:30:09 PM
[2020-07-08] MEDS ORDERED: ISOVUE-370 76% 100ML VIAL As Ordered ONE (17:55)
--- NOTE | 2020-07-08 18:30 | REPVR ---
PROCEDURE INFORMATION: Exam: CT Abdomen And Pelvis With Contrast Exam date and time: 07/08/2020 6:04 PM Age: 30 years old Clinical indication: Abdominal pain; Additional info: Lower abd pain/dist TECHNIQUE: Imaging protocol: Computed tomography of the abdomen and pelvis with intravenous contrast. Radiation optimization: All CT scans at this facility use at least one of these dose optimization techniques: automated exposure control; mA and/or kV adjustment per patient size (includes targeted exams where dose is matched to clinical indication); or iterative reconstruction. Contrast material: ISO 370; Contrast volume: 100 ml; Contrast route: INTRAVENOUS (IV); COMPARISON: CT ABD/PEL W/IV CONTRAST ONLY 06/15/2019 7:44 PM FINDINGS: Lungs: Small ground-glass subpleural opacities right lung base likely represent foci of atelectasis. Mediastinal space: A small sliding hiatal hernia is present. Liver: Normal. No mass. Gallbladder and bile ducts: Normal. No calcified stones. No ductal dilation. Pancreas: Normal. No ductal dilation. Spleen: Normal. No splenomegaly. Adrenals: Normal. No mass. Kidneys and ureters: Normal. No hydronephrosis. Stomach and bowel: Unremarkable. No obstruction. No mucosal thickening. Appendix: No evidence of appendicitis. Intraperitoneal space: Unremarkable. No free air. No significant fluid collection. Vasculature: Unremarkable. No abdominal aortic aneurysm. Lymph nodes: Unremarkable. No enlarged lymph nodes. Bladder: Unremarkable as visualized. Reproductive: Status post tubal ligation. Bones/joints: Unremarkable. No acute fracture. Soft tissues: There is a small umbilical hernia. There is no evidence of incarceration. IMPRESSION: 1. A small sliding hiatal hernia and umbilical hernia are present. 2. No acute findings. Electronically signed by: Kristofer Hanks On 07/08/2020 18:30:11 PM
[2020-07-08] MEDS ORDERED: PANT40TA29 PO (19:06)
[2020-07-08 19:20] VITALS: BP 120/69
--- NOTE | 2020-07-20 12:28 | ECGEPIP ---
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
== END 2020-07-08 19:32 | disposition home or self-care (01) ==
LOC: M ED 15:00
DX: K44.9 Diaphragmatic hernia without obstruction or gangrene (principal); N85.9 Noninflammatory disorder of uterus, unspecified; J45.909 Unspecified asthma, uncomplicated; F31.9 Bipolar disorder, unspecified; M54.9 Dorsalgia, unspecified; F60.3 Borderline personality disorder; F17.200 Nicotine dependence, unspecified, uncomplicated; F11.20 Opioid dependence, uncomplicated; Z88.8 Allergy status to other drugs, medicaments and biological substances
CPT/HCPCS: 74177; 76830; 76856; 80048; 80076; 81001; 82550; 82553; 83690; 84703; 85025; 93005; 93976; 96361; 96374; 99284; J1885; Q9967

== ENCOUNTER → 2020-08-26 | Outpatient (CLI) | payer OTHER ==
[~2020-08-26] MED LIST changes: +BUPR1FIL3; +OXYC1TAB23 PO; +PANT40TA29 PO
== END ==
LOC: M LABSMTC 09:56
PROVIDERS: ATTEND Anesthesiology
DX: Z01.812 Encounter for preprocedural laboratory examination (principal); Z20.828 Contact with and (suspected) exposure to other viral communicable diseases
CPT/HCPCS: C9803; U0003

== ENCOUNTER 2020-08-31 09:38 | Day surgery (SDC) | payer OTHER ==
[~2020-08-31] VITALS: Ht 162.6 cm; Wt 72.6 kg
[2020-08-31] VITALS (7 sets, daily range): BP systolic 103–132; BP diastolic 57–70
[~2020-08-31 09:38] MED LIST changes: +LR 1,000 ML IV ONE; -OXYC1TAB23 PO; +ceFAZolin SOD 2 GM in IV 1 EA IV ONE
[2020-08-31] MEDS ORDERED: ONDANSETRON 4MG/2ML VIAL As Ordered ONE (09:43)
[2020-08-31] MEDS ORDERED: propofoL 200 MG/20 ML VIAL As Ordered ONE (09:43)
[2020-08-31] MEDS ORDERED: dexameTHASONE 4 MG/ML 1ML VIAL (J1100 PER 1MG) As Ordered ONE (09:43)
[2020-08-31] MEDS ORDERED: LIDOCAINE 2% 100MG/5ML SDV (FOR ANES.) As Ordered ONE (09:43)
[2020-08-31] MEDS ORDERED: ROCURONIUM BROMIDE 50 MG/5 ML VIAL As Ordered ONE (09:43)
[2020-08-31] MEDS ORDERED: MIDAZOLAM INJ 2MG/2ML VIAL (J2250 PER 1MG) As Ordered ONE (09:46)
[2020-08-31] MEDS ORDERED: fentaNYL 100 MCG/2 ML INJECTION (J3010) As Ordered ONE ×4 (09:46→12:49)
[2020-08-31 10:08] LABS: HEMATOCRIT 40.9 % (36.0-47.0); HEMOGLOBIN 13.6 g/dl (12.0-15.5); MEAN CORPUSCULAR HEMOGLOBIN 30.5 pg (27.0-33.0); MEAN CORPUSCULAR HGB CONC 33.3 g/dl (32.0-36.5); MEAN CORPUSCULAR VOLUME 91.7 fl (80.0-96.0); PLATELET COUNT, AUTOMATED 199 10^3/uL (150-450); RED BLOOD COUNT 4.46 10^6/uL (4.00-5.40); WHITE BLOOD COUNT 4.5 10^3/uL (4.0-10.0)
[2020-08-31] MEDS ORDERED: BUPIVACAINE HCL 0.25% 10ML VIAL As Ordered ONE (10:42)
[2020-08-31] MEDS ORDERED: ACETAMINOPHEN 1000MG 100ML IV BTL (OFIRMEV) (J0131 PER 10MG) As Ordered ONE (11:13)
[2020-08-31] MEDS ORDERED: KETOROLAC 60MG 2ML VIAL As Ordered ONE (11:18)
[2020-08-31] MEDS ORDERED: SUGAMMADEX SODIUM 500 MG/5 ML VIAL (BRIDION) As Ordered ONE (11:18)
[2020-08-31] MEDS ORDERED: METOCLOPRAMIDE INJ 10MG/2ML VIAL (J2765 PER 1) As Ordered ONE (11:20)
[2020-08-31] MEDS ORDERED: ePHEDrine SULFATE 25 MG/5 ML(5MG/ML) SYRINGE As Ordered ONE (11:24)
[2020-08-31] MEDS ORDERED: GLYCOPYRROLATE INJ 0.2 MG/ML 2 ML VIAL As Ordered ONE (11:26)
[2020-08-31] MEDS ORDERED: ESMOLOL INJ 100MG/10ML VIAL As Ordered ONE (11:36)
--- NOTE | 2020-08-31 12:19 | ROOPDOC ---
[facility] Report Of Operation Report of Operation DATE OF PROCEDURE: 08/31/20 OPERATIVE REPORT: Preoperative diagnosis: Menorrhagia. Postoperative diagnosis: Same. Procedure: Robotic-assisted laparoscopic hysterectomy, bilateral salpingectomy Surgeon: Lukas Martinez M.D. Bow Repairer Custom: Lisa Schmitt NP FINDINGS: normal uterus, ovaries, fallopian tubes with evidence of prior sterilization EBL: 75 mL's. Urine output: 100 mL's. Operative summary: Patient was taken to the operating room where general endotracheal anesthesia was induced. She was prepped and draped in sterile fashion in the dorsal lithotomy position. A Goodrich Catheter was placed. A V care uterine manipulator was placed. A Periumbilical incision was made with a scalp el. . A Veress needle was placed through this incision. Intra-abdominal location of Veress needle was assessed with saline filled syringe. A pneumoperitoneum was created. The Veress needle was removed. An 8 mm trocar using the Visiport was inserted through this incision. Three 8 mm suprapubic ports were placed under direct visualization The patient was placed in Trendelenburg position. The da Taylor surgical robot was docked to the ports. Using the fenestrated bipolar instrument and vessel sealer., the utero-ovarian ligaments and broad ligaments were coagulated and incised. The round ligaments were coagulated and incised. The anterior and posterior leaves of the broad ligament were . Bladder flap was created. The uterine vessels were coagulated and incised using monopolar Endo Brett. A colpotomy was created in the upper vagina at the level of the V care Cup. The specimen including the uterus, cervix, fallopian tubes was removed through the vagina. The vaginal cuff was closed with #1 V lock suture in running fashion. All instruments removed. The skin was closed with 4-0 Monocryl subcuticular sutures. Lisa Schmitt NP assisted with all aspects of the procedure. She helped position the patient. She helped insert the ports and manipulate the uterus. She removed the specimen. LUKAS MARTINEZ MD Aug 31, 2020 12:19
[2020-08-31] MEDS ORDERED: IBUP-1022 PO (12:20)
[2020-08-31] MEDS ORDERED: OXYC1TAB23 PO (12:21)
[2020-08-31] MEDS: fentaNYL 100 MCG/2 ML INJECTION (J3010) IV PRN ×6 (12:22→13:00)
[2020-08-31] MEDS ORDERED: oxyCODONE 5MG TAB As Ordered ONE (12:49)
[2020-08-31] MEDS ORDERED: MEPERIDINE INJ 25 MG/ML VIAL (J2175) As Ordered ONE (12:54)
[2020-08-31] MEDS ORDERED: MEPERIDINE INJ 25 MG/ML VIAL (J2175) IV PRN (13:15)
[2020-08-31] MEDS ORDERED: ONDANSETRON 4MG/2ML VIAL IV PRN ×2 (13:15)
[2020-08-31] MEDS ORDERED: METOCLOPRAMIDE INJ 10MG/2ML VIAL (J2765 PER 1) IV PRN (13:15)
[2020-08-31] MEDS ORDERED: oxyCODONE 5MG TAB PO PRN (13:15)
[2020-08-31] MEDS ORDERED: LR 1,000 ML IV SCH ×2 (13:15)
[2020-08-31] MEDS ORDERED: PERCOCET 5MG/325MG TAB PO PRN (14:15)
[2020-08-31] MEDS ORDERED: MORPHINE 4 MG/ML 1ML VIAL/SYRINGE (J2270) IV PRN (14:30)
[2020-08-31] MEDS ORDERED: KETOROLAC 30 MG/ML 1ML VIAL IV PRN (14:45)
[2020-08-31] MEDS: BUPRENORPHINE/NALOXONE 8-2MG SUBLINGUAL TABLET(SUBOXONE) SL SCH (19:01)
[2020-08-31] MEDS: PERCOCET 5MG/325MG TAB PO PRN (21:40)
[2020-08-31] MEDS: DOCUSATE SODIUM 100 MG CAP PO SCH (21:40)
[2020-09-01 02:00] VITALS: BP 102/58
[2020-09-01] MEDS: PERCOCET 5MG/325MG TAB PO PRN (02:20)
[2020-09-01 06:00] VITALS: BP 92/58
[2020-09-01] MEDS: BUPRENORPHINE/NALOXONE 8-2MG SUBLINGUAL TABLET(SUBOXONE) SL SCH (08:34)
[2020-09-01] MEDS: DOCUSATE SODIUM 100 MG CAP PO SCH (08:34)
== END 2020-09-01 10:30 | disposition home or self-care (01) ==
LOC: M SDC 09:38 → M MS5PR 14:00 → M SDC 09-01 10:30
PROVIDERS: ATTEND Specialist
DX: N92.0 Excessive and frequent menstruation with regular cycle (principal); N80.0 Endometriosis of uterus; N72 Inflammatory disease of cervix uteri; J45.909 Unspecified asthma, uncomplicated; Z88.8 Allergy status to other drugs, medicaments and biological substances; F31.9 Bipolar disorder, unspecified; F90.9 Attention-deficit hyperactivity disorder, unspecified type; F32.9 Major depressive disorder, single episode, unspecified; F41.9 Anxiety disorder, unspecified; Z79.899 Other long term (current) drug therapy
CPT/HCPCS: 36415; 58571; 81025; 85027; 86850; 86900; 86901; 87641; 88307; J0131; J0690; J1100; J1885; J2250; J2405; J2765; J3010; S2900

== ENCOUNTER 2021-02-09 22:04 | Emergency (ER) | payer OTHER ==
[~2021-02-09] VITALS: Ht 167.6 cm; Wt 76.1 kg
[~2021-02-09 22:04] MED LIST changes: +GABA-282 PO; -GABA-843 PO; -LR 1,000 ML IV ONE; +OXYC1TAB23 PO; -ceFAZolin SOD 2 GM in IV 1 EA IV ONE
[2021-02-09 22:06] VITALS: BP 121/77
[2021-02-10] MEDS ORDERED: CEPHALEXIN 500 MG CAP As Ordered ONE (02:15)
[2021-02-10 02:58] LABS: HEMATOCRIT 39.6 % (36.0-47.0); HEMOGLOBIN 13.5 g/dl (12.0-15.5); MEAN CORPUSCULAR HEMOGLOBIN 31.5 pg (27.0-33.0); MEAN CORPUSCULAR HGB CONC 34.1 g/dl (32.0-36.5); MEAN CORPUSCULAR VOLUME 92.5 fl (80.0-96.0); PLATELET COUNT, AUTOMATED 181 10^3/uL (150-450); RED BLOOD COUNT 4.28 10^6/uL (4.00-5.40); WHITE BLOOD COUNT 8.3 10^3/uL (4.0-10.0)
== END 2021-02-10 07:40 | disposition home or self-care (01) ==
LOC: M ED 22:04
DX: N39.0 Urinary tract infection, site not specified (principal); F90.9 Attention-deficit hyperactivity disorder, unspecified type; F60.3 Borderline personality disorder; F12.10 Cannabis abuse, uncomplicated; F11.10 Opioid abuse, uncomplicated

== ENCOUNTER 2021-04-11 15:51 | Emergency (ER) | payer OTHER ==
[~2021-04-11] VITALS: Ht 167.6 cm; Wt 77.3 kg
[2021-04-11 15:52] VITALS: BP 123/80
[2021-04-11] MEDS ORDERED: IBUP-1022 PO (16:27)
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
== END 2021-04-11 19:00 | disposition home or self-care (01) ==
LOC: M ED 15:51
DX: S92.351A Displaced fracture of fifth metatarsal bone, right foot, initial encounter for closed fracture (principal); X58.XXXA Exposure to other specified factors, initial encounter; Y92.009 Unspecified place in unspecified non-institutional (private) residence as the place of occurrence of the external cause; Y93.89 Activity, other specified; Y99.8 Other external cause status; J45.909 Unspecified asthma, uncomplicated; F31.9 Bipolar disorder, unspecified; F90.9 Attention-deficit hyperactivity disorder, unspecified type; F60.3 Borderline personality disorder; F41.9 Anxiety disorder, unspecified; F19.11 Other psychoactive substance abuse, in remission; F17.200 Nicotine dependence, unspecified, uncomplicated

== ENCOUNTER 2021-08-03 19:12 | Emergency (ER) | payer OTHER ==
[~2021-08-03] VITALS: Ht 170.2 cm; Wt 76.7 kg
[2021-08-04] MEDS ORDERED: diphenhydrAMINE 50MG/ML VIAL (J1200) IV STA (00:49)
[2021-08-04] MEDS ORDERED: NS 1,000 ML IV ONE (00:50)
[2021-08-04] MEDS ORDERED: KETOROLAC 30 MG/ML 1ML VIAL IV ONE (01:05)
[2021-08-04 01:23] LABS: BASO % 0.5 % (0.0-1.0); EOS % 0.2 % (0.0-3.0); HEMATOCRIT 40.7 % (36.0-47.0); HEMOGLOBIN 13.8 g/dl (12.0-15.5); LYMPH # 0.7 10^3/uL (1.5-5.0); LYMPH % 16.5 % (24.0-44.0); MEAN CORPUSCULAR HEMOGLOBIN 31.4 pg (27.0-33.0); MEAN CORPUSCULAR HGB CONC 33.9 g/dl (32.0-36.5); MEAN CORPUSCULAR VOLUME 92.5 fl (80.0-96.0); MONO # 0.4 10^3/uL (0.0-0.8); NEUTROPHILS % 73.8 % (36.0-66.0); PLATELET COUNT, AUTOMATED 131 10^3/uL (150-450); WHITE BLOOD COUNT 4.1 10^3/uL (4.0-10.0)
[2021-08-04 02:11] LABS: ALBUMIN 3.5 GM/DL (3.2-5.2); ALT/SGPT 20 U/L (12-78); BILIRUBIN,DIRECT 0.1 MG/DL (0.0-0.2); BILIRUBIN,TOTAL 0.3 MG/DL (0.2-1.0); BLOOD UREA NITROGEN 6 MG/DL (7-18); CALCIUM LEVEL 8.6 MG/DL (8.5-10.1); CARBON DIOXIDE LEVEL 28 MEQ/L (21-32); CHLORIDE LEVEL 106 MEQ/L (98-107); CREATININE FOR GFR 0.69 MG/DL (0.55-1.30); GLOMERULAR FILTRATION RATE > 60.0 (>60); GLUCOSE, FASTING 103 MG/DL (70-100); LIPASE 43 U/L (73-393); POTASSIUM SERUM 4.1 MEQ/L (3.5-5.1); SODIUM LEVEL 138 MEQ/L (136-145); TOTAL PROTEIN 6.6 GM/DL (6.4-8.2)
[2021-08-04 02:21] LABS: RSV AMPLIFICATION NEGATIVE (NEGATIVE)
[2021-08-04 03:21] VITALS: BP 118/66
== END 2021-08-04 03:23 | disposition home or self-care (01) ==
LOC: M ED 19:12
DX: U07.1 COVID-19 (principal); G43.909 Migraine, unspecified, not intractable, without status migrainosus; E86.0 Dehydration; R50.9 Fever, unspecified; F41.9 Anxiety disorder, unspecified; F31.9 Bipolar disorder, unspecified; F90.9 Attention-deficit hyperactivity disorder, unspecified type; F19.10 Other psychoactive substance abuse, uncomplicated; F17.200 Nicotine dependence, unspecified, uncomplicated; Z88.8 Allergy status to other drugs, medicaments and biological substances; Z79.899 Other long term (current) drug therapy; Z98.51 Tubal ligation status
CPT/HCPCS: 80048; 80076; 83690; 84702; 85025; 86140; 87631; 96360; 99284; J1200; J1885

== ENCOUNTER 2022-02-08 19:50 | Emergency (ER) | payer OTHER ==
[~2022-02-08] VITALS: Ht 165.1 cm; Wt 73.6 kg
[~2022-02-08 19:50] MED LIST changes: -CITA10TA5 PO; +CITA10TA7 PO
[2022-02-08] MEDS ORDERED: MORPHINE 2 MG/ML 1ML VIAL IV ONE (20:25)
[2022-02-08] MEDS ORDERED: MORPHINE 4 MG/ML 1ML VIAL/SYRINGE IM ONE (20:40)
[2022-02-08 21:10] VITALS: BP 138/95
[2022-02-08] MEDS ORDERED: BACITRACIN OINTMENT 30GM TUBE TOP PRN (21:10)
[2022-02-08] MEDS ORDERED: OXYCODONE/APAP 5MG/325MG(BULK FOR ED) 1 TABLET PO ONE (21:45)
== END 2022-02-08 22:05 | disposition home or self-care (01) ==
LOC: M ED 19:50
DX: T25.111A Burn of first degree of right ankle, initial encounter (principal); T31.0 Burns involving less than 10% of body surface; X10.1XXA Contact with hot food, initial encounter; Y93.G3 Activity, cooking and baking; Y92.009 Unspecified place in unspecified non-institutional (private) residence as the place of occurrence of the external cause; Y99.9 Unspecified external cause status; Z88.8 Allergy status to other drugs, medicaments and biological substances
CPT/HCPCS: 96372; 99283; J2270

== ENCOUNTER 2022-02-18 20:08 | Emergency (ER) | payer OTHER ==
[~2022-02-18] VITALS: Ht 167.6 cm; Wt 73.3 kg
[2022-02-18 20:08] VITALS: BP 121/82
== END 2022-02-18 23:29 | disposition left against medical advice (07) ==
LOC: M ED 20:08
DX: Z53.29 Procedure and treatment not carried out because of patient's decision for other reasons (principal)

== ENCOUNTER → 2022-03-25 | Outpatient (REF) | LOC: M LAB 13:36 | PROVIDERS: ATTEND Nurse Practitioner Adult Health | DX: Z00.00 Encounter for general adult medical examination without abnormal findings (principal) ==

== ENCOUNTER → 2022-07-06 | Outpatient (REF) | LOC: M EMP 14:09 | PROVIDERS: ATTEND Family Medicine | DX: Z11.52 Encounter for screening for COVID-19 (principal) ==

== ENCOUNTER 2022-07-08 09:43 | Emergency (ER) | payer OTHER ==
[~2022-07-08] VITALS: Ht 167.6 cm; Wt 71.4 kg
[2022-07-08 09:43] VITALS: BP 124/58
[2022-07-08] MEDS ORDERED: BOOSTRIX/ADACEL VACCINE (DIPHTH/PERTUSS/ACELL/TETANUS) 0.5ML SYR IM.IMMUN ONE (10:00)
== END 2022-07-08 12:53 | disposition home or self-care (01) ==
LOC: M ED 09:43
DX: S61.214A Laceration without foreign body of right ring finger without damage to nail, initial encounter (principal); W26.8XXA Contact with other sharp object(s), not elsewhere classified, initial encounter; Y92.89 Other specified places as the place of occurrence of the external cause; Y99.0 Civilian activity done for income or pay; J45.909 Unspecified asthma, uncomplicated; F31.9 Bipolar disorder, unspecified; F90.9 Attention-deficit hyperactivity disorder, unspecified type; G43.909 Migraine, unspecified, not intractable, without status migrainosus; Z79.891 Long term (current) use of opiate analgesic; F17.200 Nicotine dependence, unspecified, uncomplicated

== ENCOUNTER → 2022-07-20 | Outpatient (CLI) | payer OTHER | LOC: M WHC 09:47 | PROVIDERS: ATTEND Family Medicine Addiction Medicine | DX: N63.10 Unspecified lump in the right breast, unspecified quadrant (principal) ==

== ENCOUNTER → 2022-08-11 | Outpatient (REF) | LOC: M LABSMTC 12:02 | PROVIDERS: ATTEND Family Medicine | DX: Z20.822 Contact with and (suspected) exposure to COVID-19 (principal) ==

== ENCOUNTER 2022-09-09 06:58 | Emergency (ER) | payer OTHER ==
[~2022-09-09] VITALS: Ht 167.6 cm; Wt 71.1 kg
[2022-09-09] MEDS ORDERED: NS 1,000 ML IV ONE (08:10)
[2022-09-09 09:00] LABS: BASO % 0.3 % (0.0-1.0); EOS # 0.1 10^3/uL (0.0-0.5); EOS % 1.8 % (0.0-3.0); HEMATOCRIT 39.1 % (36.0-47.0); HEMOGLOBIN 13.4 g/dl (12.0-15.5); LYMPH # 1.6 10^3/uL (1.5-5.0); LYMPH % 42.5 % (24.0-44.0); MEAN CORPUSCULAR HEMOGLOBIN 32.1 pg (27.0-33.0); MEAN CORPUSCULAR HGB CONC 34.3 g/dl (32.0-36.5); MEAN CORPUSCULAR VOLUME 93.5 fl (80.0-96.0); MONO # 0.2 10^3/uL (0.0-0.8); MONO % 6.3 % (2.0-8.0); NEUTROPHILS # 1.9 10^3/uL (1.5-8.5); NEUTROPHILS % 48.8 % (36.0-66.0); PLATELET COUNT, AUTOMATED 178 10^3/uL (150-450); RED BLOOD COUNT 4.18 10^6/uL (4.00-5.40); WHITE BLOOD COUNT 3.8 10^3/uL (4.0-10.0)
[2022-09-09] MEDS ORDERED: ISOVUE-370 76% 100ML VIAL As Ordered ONE (09:12)
[2022-09-09] MEDS ORDERED: ONDANSETRON 4MG 2ML VIAL IV ONE (09:20)
[2022-09-09] MEDS ORDERED: MORPHINE 4 MG/ML 1ML VIAL/SYRINGE IV ONE (09:20)
[2022-09-09 09:52] LABS: ALBUMIN 3.7 GM/DL (3.2-5.2); ALT/SGPT 15 U/L (12-78); BILIRUBIN,DIRECT < 0.1 MG/DL (0.0-0.2); BILIRUBIN,TOTAL 0.3 MG/DL (0.2-1.0); LIPASE 82 U/L (73-393); TOTAL PROTEIN 6.4 GM/DL (6.4-8.2)
[2022-09-09 12:12] VITALS: BP 114/59
== END 2022-09-09 12:22 | disposition home or self-care (01) ==
LOC: M ED 06:58
DX: R10.31 Right lower quadrant pain (principal); K76.89 Other specified diseases of liver; G43.909 Migraine, unspecified, not intractable, without status migrainosus; Z90.710 Acquired absence of both cervix and uterus; J45.909 Unspecified asthma, uncomplicated; G89.29 Other chronic pain; M54.9 Dorsalgia, unspecified; F31.9 Bipolar disorder, unspecified; F90.9 Attention-deficit hyperactivity disorder, unspecified type; F17.200 Nicotine dependence, unspecified, uncomplicated; Z88.8 Allergy status to other drugs, medicaments and biological substances; Z79.899 Other long term (current) drug therapy
CPT/HCPCS: 74177; 76856; 80047; 80076; 81000; 83690; 84702; 85025; 93976; 96361; 96374; 96375; 99284; J2270; J2405

== ENCOUNTER 2022-11-22 04:07 | Emergency (ER) | payer OTHER ==
[~2022-11-22] VITALS: Ht 165.1 cm; Wt 75.0 kg
[2022-11-22 04:08] VITALS: BP 153/70
== END 2022-11-22 05:33 | disposition left against medical advice (07) ==
LOC: M ED 04:07
DX: Z53.21 Procedure and treatment not carried out due to patient leaving prior to being seen by health care provider (principal)

== ENCOUNTER → 2023-06-12 | Outpatient (REF) ==
[2023-06-12 12:22] LABS: RSV AMPLIFICATION NEGATIVE (NEGATIVE)
== END ==
LOC: M EMP 11:28
PROVIDERS: ATTEND Family Medicine
DX: Z11.59 Encounter for screening for other viral diseases (principal)

== ENCOUNTER 2025-09-12 03:44 | Emergency (ER) | payer OTHER, SELFPAY ==
[~2025-09-12] VITALS: Ht 167.6 cm; Wt 65.9 kg
[~2025-09-12 03:44] MED LIST changes: +BUPR-766 PO; -BUPR300T92 PO; -EFFE37.5 PO; +EFFE37.52 PO; +GABA-1172 PO; +GABA-1490; +GABA-1490 PO; -GABA-282 PO; -GABA600T4; -GABA600T4 PO; -IBUP-1022 PO; +IBUP600T42 PO; +ONDA-282 PO; -ONDA4TAB6 PO
[2025-09-12 03:47] VITALS: TEMP 96.8
[2025-09-12] MEDS ORDERED: BUSP10TA (03:56)
[2025-09-12] MEDS ORDERED: DULO1CAP4 (03:56)
[2025-09-12] MEDS ORDERED: ARIP1TAB6 (03:56)
[2025-09-12 06:14] VITALS: BP 106/60; O2SAT 96
== END 2025-09-12 06:34 | disposition home or self-care (01) ==
LOC: M ED 03:44
DX: Z63.0 Problems in relationship with spouse or partner (principal); Z88.8 Allergy status to other drugs, medicaments and biological substances; F17.210 Nicotine dependence, cigarettes, uncomplicated; F10.10 Alcohol abuse, uncomplicated; Z79.899 Other long term (current) drug therapy